=== PATIENT | female | born 1955 | race Caucasian/White ===

== ENCOUNTER 2017-06-06 16:49 | Observation (INO) | payer OTHER ==
[2017-06-06] MEDS: ONDANSETRON HCL 4 MG/2 ML VIAL IM (17:30)
[2017-06-06 18:08] LABS: AUTOMATED NEUTROPHIL # 6.9 TH/MM3 (1.8-7.7); BASOPHIL % 0.3 % (0.0-2.0); EOSINOPHIL # 0.1 TH/MM3 (0-0.4); EOSINOPHIL % 0.7 % (0.0-4.0); HEMATOCRIT 44.8 % (35.0-46.0); HEMO FLAGS DIFF FINAL; HEMOGLOBIN 15.3 GM/DL (11.6-15.3); MEAN CORPUSCULAR HEMOGLOBIN 30.7 PG (27.0-34.0); MEAN CORPUSCULAR HGB CONC 34.1 % (32.0-36.0); MEAN PLATELET VOLUME 7.8 FL (7.0-11.0); MONO % 6.1 % (0.0-8.0); MONOCYTE # 0.5 TH/MM3 (0-0.9); NEUT % 80.9 % (16.0-70.0); PLATELET COUNT 315 TH/MM3 (150-450); RED BLOOD COUNT 4.98 MIL/MM3 (4.00-5.30); RED CELL DISTRIBUTION WIDTH 13.4 % (11.6-17.2); WHITE BLOOD COUNT 8.5 TH/MM3 (4.0-11.0)
[2017-06-06] MEDS: SODIUM CHLOR 0.9% 1000 ML INJ 1,000 ML IV (18:26)
[2017-06-06 18:27] LABS: ALBUMIN 4.1 GM/DL (3.4-5.0); ANION GAP 12 MEQ/L (5-15); AST (GOT) 19 U/L (15-37); BICARBONATE 24.4 MEQ/L (21.0-32.0); BLOOD UREA NITROGEN 11 MG/DL (7-18); CALCIUM 9.8 MG/DL (8.5-10.1); CHLORIDE 101 MEQ/L (98-107); CREATININE 1.01 MG/DL (0.50-1.00); GLOMERULAR FILTRATION RATE 56 ML/MIN (>89); GLUCOSE,RANDOM 129 MG/DL (74-106); LIPASE 99 U/L (73-393); POTASSIUM 3.3 MEQ/L (3.5-5.1); SODIUM (NA) 137 MEQ/L (136-145)
[2017-06-06] MEDS: ONDANSETRON HCL 4 MG/2 ML VIAL IV PUSH (18:27)
[2017-06-06 18:29] LABS: ALT (GPT) 15 U/L (10-53)
[2017-06-06 18:31] LABS: ALKALINE PHOSPHATASE 68 U/L (45-117); TOTAL BILIRUBIN ADULT 0.9 MG/DL (0.2-1.0); TOTAL PROTEIN 8.2 GM/DL (6.4-8.2)
[2017-06-06] MEDS: DIATRIZOATE MEGLUM/DIATRIZOATE SOD 120 ML BTL (for RAD DIAG) PO (19:00)
[2017-06-06] MEDS: METOCLOPRAMIDE HCL 10 MG/2 ML VIAL IV PUSH (20:47)
[2017-06-06] MEDS: PROCHLORPERAZINE INJ 10 MG/2 ML VIAL IV PUSH (22:07)
[2017-06-06] MEDS: PANTOPRAZOLE SODIUM 40 MG VIAL IV PUSH (22:12)
[2017-06-06] MEDS: NS + KCL 20 MEQ INJ 1,000 ML IV (22:12)
[2017-06-07] MEDS: PROMETHAZINE INJ 25 MG/ML VIAL IM ×2 (02:01→08:18)
[2017-06-07] MEDS: LEVOTHYROXINE SODIUM 100 MCG TAB PO (06:00)
[2017-06-07] MEDS: PROCHLORPERAZINE INJ 10 MG/2 ML VIAL IV PUSH (06:17)
[2017-06-07 07:56] LABS: ALBUMIN 3.3 GM/DL (3.4-5.0); ALT (GPT) 14 U/L (10-53); ANION GAP 9 MEQ/L (5-15); AST (GOT) 14 U/L (15-37); BICARBONATE 24.6 MEQ/L (21.0-32.0); BLOOD UREA NITROGEN 9 MG/DL (7-18); CALCIUM 8.4 MG/DL (8.5-10.1); CHLORIDE 106 MEQ/L (98-107); CREATININE 0.74 MG/DL (0.50-1.00); GLOMERULAR FILTRATION RATE 80 ML/MIN (>89); GLUCOSE,RANDOM 91 MG/DL (74-106); SODIUM (NA) 140 MEQ/L (136-145)
[2017-06-07] MEDS: SUCRALFATE 1 GM/10 ML CUP PO ×4 (08:00→21:03)
[2017-06-07 08:03] LABS: ALKALINE PHOSPHATASE 59 U/L (45-117); TOTAL BILIRUBIN ADULT 0.6 MG/DL (0.2-1.0)
[2017-06-07] MEDS: NS + KCL 20 MEQ INJ 1,000 ML IV (08:18)
[2017-06-07] MEDS ORDERED: LUBIPROSTONE 8 MCG PO (09:00)
[2017-06-07] MEDS ORDERED: LUBIPROSTONE PO (09:00)
[2017-06-07] MEDS: PANTOPRAZOLE SODIUM 40 MG VIAL IV PUSH ×2 (09:25→21:02)
[2017-06-07 11:39] LABS: HEMATOCRIT 39.1 % (35.0-46.0); HEMOGLOBIN 13.4 GM/DL (11.6-15.3); MEAN CELL VOLUME 90.8 FL (80.0-100.0); MEAN CORPUSCULAR HEMOGLOBIN 31.1 PG (27.0-34.0); MEAN CORPUSCULAR HGB CONC 34.2 % (32.0-36.0); MEAN PLATELET VOLUME 8.2 FL (7.0-11.0); PLATELET COUNT 264 TH/MM3 (150-450); RED CELL DISTRIBUTION WIDTH 13.2 % (11.6-17.2); REVIEW FLAG FINAL; WHITE BLOOD COUNT 14.8 TH/MM3 (4.0-11.0)
[2017-06-07] MEDS: ONDANSETRON HCL 4 MG/2 ML VIAL IV PUSH (11:47)
[2017-06-07] MEDS ORDERED: SUCCINYLCHOLINE CHLORIDE 200 MG/10 ML VIAL IV (12:00)
[2017-06-07] MEDS ORDERED: LIDOCAINE HCL 1% PF 5 ML SYRINGE OTHER (12:00)
[2017-06-07] MEDS: APREPITANT 40 MG CAP (13:08)
[2017-06-07] MEDS ORDERED: APREPITANT 40 MG CAP PO (14:00)
[2017-06-07] MEDS ORDERED: DO NOT ADM ANY ANTICOAGULANT DRUGS (14:40)
[2017-06-07] MEDS ORDERED: METOCLOPRAMIDE HCL 10 MG TAB PO ×2 (17:00)
[2017-06-07] MEDS: METOCLOPRAMIDE HCL 10 MG/2 ML VIAL IV PUSH ×2 (18:44→21:03)
[2017-06-08] MEDS: LEVOTHYROXINE SODIUM 100 MCG TAB PO (06:11)
[2017-06-08] MEDS: METOCLOPRAMIDE HCL 10 MG/2 ML VIAL IV PUSH (06:11)
[2017-06-08] MEDS: SUCRALFATE 1 GM/10 ML CUP PO ×2 (06:11→12:25)
[2017-06-08] MEDS: PANTOPRAZOLE SODIUM 40 MG VIAL IV PUSH (09:09)
[2017-06-08] MEDS: ACETAMIN 325 MG/BUTALBITAL 50 MG/CAFFEINE 40 MG TAB PO (09:10)
== END 2017-06-08 15:20 | disposition home or self-care (01) ==
LOC: NEPE 16:49 → NEDA 20:50 → NEPGCP 22:46
DX: R11.2 Nausea with vomiting, unspecified (principal); K22.4 Dyskinesia of esophagus; K22.10 Ulcer of esophagus without bleeding; I49.9 Cardiac arrhythmia, unspecified; I10 Essential (primary) hypertension; E78.5 Hyperlipidemia, unspecified; E03.9 Hypothyroidism, unspecified; G47.33 Obstructive sleep apnea (adult) (pediatric); K21.9 Gastro-esophageal reflux disease without esophagitis; M79.7 Fibromyalgia; E87.6 Hypokalemia; R53.82 Chronic fatigue, unspecified; G43.909 Migraine, unspecified, not intractable, without status migrainosus; M81.0 Age-related osteoporosis without current pathological fracture; Z79.899 Other long term (current) drug therapy; Z87.891 Personal history of nicotine dependence
CPT/HCPCS: 00731; 74240; 80053; 83690; 84443; 85025; 85027; 93005; 96361; 96372; 96374; 96375; 99285-25

== ENCOUNTER 2017-08-23 13:58 | Emergency (ER) | payer OTHER ==
[~2017-08-23 13:58] MED LIST: AMIT8CAP6 PO; BUTA1CAP PO; CHOL400D2 PO; LEVO.1 PO; PROT40TA PO; REGL5TAB PO; SUCR1S PO; VITA100021 SL
[2017-08-23 14:12] VITALS: BP 116/74; PULSE 75; RESP 16; TEMP 98.2; O2SAT 100
[2017-08-23 15:10] LABS: AUTOMATED NEUTROPHIL # 4.6 TH/MM3 (1.8-7.7); BASOPHIL % 0.6 % (0.0-2.0); EOSINOPHIL % 0.6 % (0.0-4.0); HEMATOCRIT 42.4 % (35.0-46.0); HEMOGLOBIN 14.7 GM/DL (11.6-15.3); LYMPH % 21.5 % (9.0-44.0); LYMPHOCYTE # 1.4 TH/MM3 (1.0-4.8); MEAN CELL VOLUME 88.1 FL (80.0-100.0); MEAN CORPUSCULAR HEMOGLOBIN 30.5 PG (27.0-34.0); MEAN CORPUSCULAR HGB CONC 34.6 % (32.0-36.0); MEAN PLATELET VOLUME 8.2 FL (7.0-11.0); MONOCYTE # 0.4 TH/MM3 (0-0.9); NEUT % 71.3 % (16.0-70.0); PLATELET COUNT 282 TH/MM3 (150-450); RED BLOOD COUNT 4.81 MIL/MM3 (4.00-5.30); RED CELL DISTRIBUTION WIDTH 13.5 % (11.6-17.2); WHITE BLOOD COUNT 6.4 TH/MM3 (4.0-11.0)
[2017-08-23 15:34] LABS: ALBUMIN 3.8 GM/DL (3.4-5.0); ALKALINE PHOSPHATASE 66 U/L (45-117); ALT (GPT) 14 U/L (10-53); AST (GOT) 16 U/L (15-37); BICARBONATE 28.7 MEQ/L (21.0-32.0); BLOOD UREA NITROGEN 10 MG/DL (7-18); CALCIUM 9.2 MG/DL (8.5-10.1); CHLORIDE 103 MEQ/L (98-107); GLOMERULAR FILTRATION RATE 73 ML/MIN (>89); GLUCOSE,RANDOM 89 MG/DL (74-106); SODIUM (NA) 141 MEQ/L (136-145); TOTAL BILIRUBIN ADULT 0.8 MG/DL (0.2-1.0); TOTAL PROTEIN 7.8 GM/DL (6.4-8.2)
[2017-08-23 15:40] LABS: PROTHROMBIN TIME - PATIENT 10.5 SEC (9.8-11.6)
[2017-08-23 17:00] VITALS: BP 139/79; PULSE 85; RESP 16; O2SAT 100
[2017-08-23] MEDS ORDERED: SODIUM CHLOR 0.9% 1000 ML INJ 1,000 ML IV SCH (17:14)
[2017-08-23] MEDS ORDERED: LIDOCAINE VISCOUS 2% SOLN 15 ML UDC PO ONE (17:15)
[2017-08-23] MEDS ORDERED: POTASSIUM CHLORIDE 20 MEQ CONTROLLED RELEASE TAB PO ONE (17:15)
[2017-08-23] MEDS ORDERED: ALUMINUM/MAGNESIUM/SIMETH 30 ML CUP PO ONE (17:15)
[2017-08-23] MEDS ORDERED: FAMOTIDINE 20 MG/2 ML VIAL IV PUSH ONE (17:15)
[2017-08-23] MEDS ORDERED: PROCHLORPERAZINE INJ 10 MG/2 ML VIAL IV PUSH ONE (17:15)
[2017-08-23] MEDS ORDERED: POTASSIUM CHLOR 10 MEQ PREMIX 100 ML IV ONE (17:15)
--- NOTE | 2017-08-23 17:22 | PD ---
HPI Chief Complaint: GI Complaint Time Seen by Provider: 17:02 Travel History International Travel<30 days: No Contact w/Intl Traveler<30days: No Traveled to known affect area: No History of Present Illness HPI This is a 63-year-old female with history of GERD, previous hiatal hernia status post Charlotte fundoplication redo April 2017 at [facility], hypothyroidism, presents for evaluation of nausea, vomiting, epigastric abdominal pain. Symptoms started 3 days ago. She reports that the pain is a burning sensation which feels like worse than her typical heartburn. She reports several episodes of nonbloody emesis which is now become dry heaves secondary to lack of oral intake. She reports that initially she had some diarrhea 3 days ago but that has resolved. She denies fevers, chills, chest pain, shortness of breath, cough, congestion, dysuria, flank pain. She reports that her current symptoms feel like heartburn but worse than usual and so she was concerned about possible gallbladder etiology. She reports that she has an appointment at the [facility] in 2 days with her dietary assistant for a GI barium series. She reports that she is not currently prescribed any antiemetics but in the past Compazine and Phenergan have worked the best. She has no other complaints at this time. [facility] Past Medical History Blood Disorders: No Anxiety: Yes Cancer: No Cardiovascular Problems: Yes Diabetes: No Endocrine: Yes Gastrointestinal Disorders: Yes GERD: Yes Glaucoma: No Genitourinary: No Hepatitis: No Hiatal Hernia: Yes Hypertension: Yes Immune Disorder: No Inguinal Hernia: Yes Musculoskeletal: Yes Neurologic: Yes Psychiatric: Yes Reproductive: No Respiratory: Yes Sleep Apnea: Yes Thyroid Disease: Yes Menopausal: Yes : 3 Para: 2 : 1 Past Surgical History Abdominal Surgery: Yes (rih repair) Genitourinary Surgery: Yes (uretheral stricture) Oral Surgery: Yes (tonsillectomy) Thoracic Surgery: Yes (HIATAL HERNIA REP.) Tonsillectomy: Yes Other Surgery: Yes (esophageal stricture and dilitation, Charlotte fundoplication) Social History Alcohol Use: Yes (OCCAS) Tobacco Use: No Substance Use: No Allergies-Medications (Allergen,Severity, Reaction): Coded Allergies: No Known Allergies (Verified Allergy, Unknown, 08/23/17) Reported Meds & Prescriptions Reported Meds & Active Scripts Active Potassium Chloride ER (Potassium Chloride) 20 Meq Tab 20 Meq PO BID 3 Days Phenergan (Promethazine HCl) 25 Mg Tablet 25 Mg PO Q6H PRN Fioricet (Rvsklxptfk-Nvigzvlsbjbez-Fbrgkesw) 50-300-40 Mg Cap 1 Cap PO Q4H PRN Sucralfate Liq (Sucralfate) 1 Gram/10 Ml Laina 1 Gm PO ACHS 30 Days Reported Amitiza (Lubiprostone) 8 Mcg Cap 8 Mcg PO BID Vitamin B-12 (Cyanocobalamin) 1,000 Mcg Subl 1,000 Mcg SL DAILY Vitamin D (Cholecalciferol) 400 Unit/Ml Drops 50,000 Units PO WEEKLY Synthroid (Levothyroxine Sodium) 100 Mcg Tab 100 Mcg PO DAILY Review of Systems Except as stated in HPI: all other systems reviewed are Neg Physical Exam Narrative GENERAL: Well-developed well-nourished female no acute distress SKIN: Warm and dry. HEAD: Atraumatic. Normocephalic. EYES: Pupils equal and round. No scleral icterus. No injection or drainage. ENT: No nasal bleeding or discharge. Mucous membranes pink and moist. NECK: Trachea midline. No JVD. CARDIOVASCULAR: Regular rate and rhythm. No murmur appreciated. RESPIRATORY: No accessory muscle use. Clear to auscultation. Breath sounds equal bilaterally. GASTROINTESTINAL: Abdomen soft, non-tender, nondistended. Hepatic and splenic margins not palpable. MUSCULOSKELETAL: No obvious deformities. No clubbing. No cyanosis. No edema. NEUROLOGICAL: Awake and alert. No obvious cranial nerve deficits. Motor grossly within normal limits. Normal speech. PSYCHIATRIC: Appropriate mood and affect; insight and judgment normal. Data Data Last Documented VS Vital Signs Date Time Temp Pulse Resp B/P (MAP) Pulse Ox O2 Delivery O2 Flow Rate FiO2 08/23/17 17:00 85 16 139/79 (99) 100 Room Air 08/23/17 14:12 98.2 Orders Orders Complete Blood Count With Diff (08/23/17 14:16) Comprehensive Metabolic Panel (08/23/17 14:16) Lipase (08/23/17 14:16) Prothrombin Time / Inr (Pt) (08/23/17 14:16) Act Partial Throm Time (Ptt) (08/23/17 14:16) Electrocardiogram (08/23/17 ) Creatine Kinase (Cpk) (08/23/17 17:14) Troponin I (08/23/17 17:14) Sodium Chlor 0.9% 1000 Ml Inj (Ns 1000 M (08/23/17 17:14) Famotidine Inj (Pepcid Inj) (08/23/17 17:15) Al-Mag Hy-Si 40-40-4 Mg/Ml Liq (Mag-Al P (08/23/17 17:15) Lidocaine 2% Viscous (Xylocaine 2% Visco (08/23/17 17:15) Potassium Chloride (Kcl) (08/23/17 17:15) Potassium Chlor 10 Meq Premix (Kcl 10 Me (08/23/17 17:15) Magnesium (Mg) (08/23/17 17:14) Prochlorperazine Inj (Compazine Inj) (08/23/17 17:15) Us Abdomen Gallbladder (08/23/17 ) Ed Discharge Order (08/23/17 18:47) Labs Laboratory Tests Test 08/23/17 14:31 White Blood Count 6.4 TH/MM3 Red Blood Count 4.81 MIL/MM3 Hemoglobin 14.7 GM/DL Hematocrit 42.4 % Mean Corpuscular Volume 88.1 FL Mean Corpuscular Hemoglobin 30.5 PG Mean Corpuscular Hemoglobin Concent 34.6 % Red Cell Distribution Width 13.5 % Platelet Count 282 TH/MM3 Mean Platelet Volume 8.2 FL Neutrophils (%) (Auto) 71.3 % Lymphocytes (%) (Auto) 21.5 % Monocytes (%) (Auto) 6.0 % Eosinophils (%) (Auto) 0.6 % Basophils (%) (Auto) 0.6 % Neutrophils # (Auto) 4.6 TH/MM3 Lymphocytes # (Auto) 1.4 TH/MM3 Monocytes # (Auto) 0.4 TH/MM3 Eosinophils # (Auto) 0.0 TH/MM3 Basophils # (Auto) 0.0 TH/MM3 CBC Comment DIFF FINAL Differential Comment Prothrombin Time 10.5 SEC Prothromb Time International Ratio 1.0 RATIO Activated Partial Thromboplast Time 26.6 SEC Blood Urea Nitrogen 10 MG/DL Creatinine 0.80 MG/DL Random Glucose 89 MG/DL Total Protein 7.8 GM/DL Albumin 3.8 GM/DL Calcium Level 9.2 MG/DL Alkaline Phosphatase 66 U/L Aspartate Amino Transf (AST/SGOT) 16 U/L Alanine Aminotransferase (ALT/SGPT) 14 U/L Total Bilirubin 0.8 MG/DL Sodium Level 141 MEQ/L Potassium Level 2.9 MEQ/L Chloride Level 103 MEQ/L Carbon Dioxide Level 28.7 MEQ/L Anion Gap 9 MEQ/L Estimat Glomerular Filtration Rate 73 ML/MIN Magnesium Level 1.8 MG/DL Total Creatine Kinase 44 U/L Troponin I LESS THAN 0.02 NG/ML Lipase 94 U/L MDM Medical Decision Making Medical Screen Exam Complete: Yes Emergency Medical Condition: Yes Medical Record Reviewed: Yes Differential Diagnosis Peptic ulcer disease, gastritis, pancreatitis, cholecystitis, dehydration, electrolyte abnormality Narrative Course I reviewed the patient's records. She was admitted in May 2017 for intractable nausea and vomiting. She underwent endoscopy on June 07 which revealed a single ulcer in the distal esophagus. EKG was obtained. Lab work, right upper quadrant ultrasound ordered. The patient was given Pepcid, IV fluids, Compazine and GI cocktail. The patient's lab work is been reviewed. Potassium level was 2.9, IV and oral potassium chloride ordered. Lab work is otherwise unremarkable. Right upper quadrant ultrasound is normal. Upon reexamination she feels significant improved, the pain is minimal and her nausea has almost resolved. At this point in time the plan will be to discharge the patient to follow-up with her dietary assistant in 2 days as scheduled. She will be given prescriptions for Phenergan as well as a 3 day supply of potassium. Discussed signs and symptoms that would warrant returning to the emergency room. She is stable for discharge. Diagnosis Primary Impression: Nausea and vomiting Additional Impression: Hypokalemia Additional Instructions: Medication as prescribed. Slowly advance diet as tolerated. Follow-up with your dietary assistant in 2 days as scheduled. Return for any acutely new or worsening symptoms. Med/Other Pt SpecificInfo: Prescription(s) given Scripts Potassium Chloride ER (Potassium Chloride ER) 20 Meq Tab 20 MEQ PO BID for Electrolyte Replacement for 3 Days, #6 TAB 0 Refills Prov: Satish Verma MD 08/23/17 Promethazine (Phenergan) 25 Mg Tablet 25 MG PO Q6H Y for NAUSEA OR VOMITING, #20 TAB 0 Refills Prov: Satish Verma MD 08/23/17 Disposition: 01 DISCHARGE HOME Condition: Stable Festus Moses Aug 23, 2017 17:22
[2017-08-23 18:13] LABS: MAGNESIUM 1.8 MG/DL (1.5-2.5)
[2017-08-23 18:15] LABS: TROPONIN I LESS THAN 0.02 NG/ML (0.02-0.05)
--- NOTE | 2017-08-23 18:41 | RADRPT ---
EXAM DATE/TIME: 08/23/2017 18:20 [place] COMPARISON: No previous studies available for comparison. INDICATIONS : Right upper quadrant pain. MEDICAL HISTORY : Hypertension. Gastroesophageal reflux disease. Thyroid disease. Numbness. Sleep apnea. Inguinal her zeferino. Anxiety. SURGICAL HISTORY : Tonsillectomy. Hiatal hernia repair. ENCOUNTER: Initial ACUITY: 1 day PAIN SCORE: 0/10 LOCATION: Right upper quadrant MEASUREMENTS: LIVER: 13.7 cm length COMMON DUCT: 3 mm RIGHT KIDNEY: 10.0 x 3.6 x 4.9 cm FINDINGS: LIVER: Suboptimal visualization due to overlying bowel gas. Normal echotexture without focal lesion or ducta l dilatation. COMMON DUCT: No intraluminal mass or stone visualized. GALLBLADDER: Contains no stones, demonstrates no wall thickening or pericholecystic fluid. PANCREAS: The visualized portions are within normal limits. RIGHT KIDNEY: No evidence of hydronephrosis, stone, or mass. CONCLUSION: Unremarkable exam. The gallbladder is within normal limits with no evidence of cholel ithiasis. Terence Hough MD on August 23, 2017 at 18:38 Board Certified Radiologist. This report was verified electronically.
[2017-08-23] MEDS ORDERED: PROM25TA10 PO (18:48)
[2017-08-23] MEDS ORDERED: POTA-163 PO (18:48)
[2017-08-23 18:51] VITALS: BP 138/74
--- NOTE | 2017-08-24 21:30 | EKG ---
Date Performed: 08/23/2017 Time Performed: 17:17:44 PTAGE: 62 years EKG: Sinus rhythm WITH SINUS ARRHYTHMIA NORMAL ECG NO PREVIOUS TRACING DOCTOR: Dale Reynaga Interpretating Date/Time 08/24/2017 21:29:55
== END 2017-08-23 19:21 | disposition home or self-care (01) ==
LOC: NEPC 13:58
DX: R11.2 Nausea with vomiting, unspecified (principal); E87.6 Hypokalemia; R10.13 Epigastric pain; E03.9 Hypothyroidism, unspecified; I10 Essential (primary) hypertension; K21.9 Gastro-esophageal reflux disease without esophagitis; F41.9 Anxiety disorder, unspecified; G47.30 Sleep apnea, unspecified
CPT/HCPCS: 76705; 80053; 82550; 83690; 83735; 84484; 85025; 85610; 85730; 93005; 96365; 96375; 99285; J0780; J3480; J7030

== ENCOUNTER 2017-08-25 11:27 | Observation (INO) | payer OTHER ==
[~2017-08-25] VITALS: Ht 160 cm; Wt 65.0 kg
[~2017-08-25 11:27] MED LIST changes: +POTA-163 PO; +PROM25TA10 PO; -PROT40TA PO; -REGL5TAB PO
[2017-08-25 11:49] VITALS: BP 161/81; PULSE 64; RESP 19; TEMP 98.7; O2SAT 100
[2017-08-25] MEDS ORDERED: PANTOPRAZOLE SODIUM 40 MG VIAL IV PUSH ONE (13:30)
[2017-08-25] MEDS ORDERED: SODIUM CHLOR 0.9% 1000 ML INJ 1,000 ML IV ONE ×2 (13:30→15:30)
[2017-08-25] MEDS ORDERED: PROCHLORPERAZINE INJ 10 MG/2 ML VIAL IV PUSH ONE (13:30)
--- NOTE | 2017-08-25 13:33 | PD ---
HPI Chief Complaint: GI Complaint Time Seen by Provider: 13:16 Travel History International Travel<30 days: No Contact w/Intl Traveler<30days: No Traveled to known affect area: No History of Present Illness HPI 62-year-old female presents to the emergency department for evaluation of nausea and vomiting. Patient was seen 2 days ago the emergency department for the same. She has history of GERD, previous hiatal hernia, status post Jagjit fundoplication redo April 2000 at the [facility], hypothyroidism. Patient denies any abdominal pain to be. No chest pain or shortness of breath. Patient states that she was discharged on Tuesday and slept until yesterday morning. She went to eat last night and has been vomiting since 4 AM. She states that she is having coffee-ground emesis due to the vomiting. Patient denies any diarrhea, states she has not had a recent bowel movement. Patient states she was due to have a barium swallow today at the [facility] and was scheduled for an endoscopy on Tuesday. She has also been following with Dr. Verma, greenskeeper head. No pain at this time. No exacerbating or alleviating factors. She did try Zofran sublingual as well as Phenergan by mouth with no improvement. Moderate severity. PFSH Past Medical History Blood Disorders: No Anxiety: Yes Cancer: No Cardiovascular Problems: Yes Diabetes: No Endocrine: Yes Gastrointestinal Disorders: Yes GERD: Yes Glaucoma: No Genitourinary: No Hepatitis: No Hiatal Hernia: Yes Hypertension: Yes Immune Disorder: No Inguinal Hernia: Yes Musculoskeletal: Yes Neurologic: Yes Psychiatric: Yes Reproductive: No Respiratory: Yes Immunizations Current: Yes Sleep Apnea: Yes Thyroid Disease: Yes ?: Not Menopausal: Yes : 3 Para: 2 : 1 Past Surgical History Abdominal Surgery: Yes (rih repair) Genitourinary Surgery: Yes (uretheral stricture) Oral Surgery: Yes (tonsillectomy) Thoracic Surgery: Yes (HIATAL HERNIA REP.) Tonsillectomy: Yes Other Surgery: Yes (esophageal stricture and dilitation, Charlotte fundoplication) Social History Alcohol Use: Yes (OCCAS) Tobacco Use: No Substance Use: No Allergies-Medications (Allergen,Severity, Reaction): Coded Allergies: No Known Allergies (Verified Allergy, Unknown, 08/25/17) Reported Meds & Prescriptions Reported Meds & Active Scripts Active Potassium Chloride ER (Potassium Chloride) 20 Meq Tab 20 Meq PO BID 3 Days Phenergan (Promethazine HCl) 25 Mg Tablet 25 Mg PO Q6H PRN Fioricet (Rybunueaeq-Qxdprakqidnkh-Ewhgowge) 50-300-40 Mg Cap 1 Cap PO Q4H PRN Sucralfate Liq (Sucralfate) 1 Gram/10 Ml Laina 1 Gm PO ACHS 30 Days Reported Amitiza (Lubiprostone) 8 Mcg Cap 8 Mcg PO BID Vitamin B-12 (Cyanocobalamin) 1,000 Mcg Subl 1,000 Mcg SL DAILY Vitamin D (Cholecalciferol) 400 Unit/Ml Drops 50,000 Units PO WEEKLY Synthroid (Levothyroxine Sodium) 100 Mcg Tab 100 Mcg PO DAILY Review of Systems Except as stated in HPI: all other systems reviewed are Neg Physical Exam Narrative GENERAL: Well-nourished, well-developed female patient, afebrile. SKIN: Focused skin assessment warm/dry. Small healed incision to abdomen without erythema or evidence of infection. HEAD: Normocephalic. Atraumatic. EYES: No scleral icterus. No injection or drainage. NECK: Supple, trachea midline. No JVD or lymphadenopathy. CARDIOVASCULAR: Regular rate and rhythm without murmurs, gallops, or rubs. RESPIRATORY: Breath sounds equal bilaterally. No accessory muscle use. Lungs sounds are clear to auscultation. GASTROINTESTINAL: Abdomen soft, non-tender, nondistended. No abdominal tenderness to palpation. MUSCULOSKELETAL: No cyanosis, or edema. BACK: Nontender without obvious deformity. No CVA tenderness. Data Data Last Documented VS Vital Signs Date Time Temp Pulse Resp B/P (MAP) Pulse Ox O2 Delivery O2 Flow Rate FiO2 08/25/17 14:41 69 23 176/81 (112) 98 Room Air 08/25/17 11:49 98.7 Orders Orders Complete Blood Count With Diff (08/25/17 11:53) Comprehensive Metabolic Panel (08/25/17 11:53) Urinalysis - C+S If Indicated (08/25/17 11:53) Iv Access Insert/Monitor (08/25/17 11:53) Oxygen Administration (08/25/17 11:53) Oximetry (08/25/17 11:53) Lipase (08/25/17 11:53) Electrocardiogram (08/25/17 ) Magnesium (Mg) (08/25/17 13:24) Creatine Kinase (Cpk) (08/25/17 13:24) Troponin I (08/25/17 13:24) Act Partial Throm Time (Ptt) (08/25/17 13:24) Prothrombin Time / Inr (Pt) (08/25/17 13:24) Type And Screen (08/25/17 13:24) Sodium Chlor 0.9% 1000 Ml Inj (Ns 1000 M (08/25/17 13:30) Prochlorperazine Inj (Compazine Inj) (08/25/17 13:30) Pantoprazole Inj (Protonix Inj) (08/25/17 13:30) Potassium Chloride (Kcl) (08/25/17 14:45) Metoclopramide Inj (Reglan Inj) (08/25/17 15:30) Sodium Chlor 0.9% 1000 Ml Inj (Ns 1000 M (08/25/17 15:30) Place In Observation (08/25/17 ) Code Status (08/25/17 15:28) Vital Signs (Adult) Q4H (08/25/17 15:28) Activity Bed Rest With Brp (08/25/17 15:28) Intake + Output OPAL.QSHIFT (08/25/17 15:28) ^ Monitor OPAL.QSHIFT (08/25/17 15:28) Diet Liquid (08/25/17 Dinner) Special Diet Instructions (08/25/17 15:28) Sodium Chloride 0.9% Flush (Ns Flush) (08/25/17 15:30) Sodium Chloride 0.9% Flush (Ns Flush) (08/25/17 21:00) Ondansetron Inj (Zofran Inj) (08/25/17 15:30) Comprehensive Metabolic Panel (08/26/17 06:00) Magnesium (Mg) (08/25/17 15:28) Phosphorus (Po4) (08/25/17 15:28) Consult Gastroenterology (08/25/17 ) Ct Abd/Pel W/O Iv Contrast (08/25/17 ) 1/2 Ns + Kcl 20 Meq Inj (1/2 Ns + Kcl 20 (08/25/17 15:45) Admit Order (Ed Use Only) (08/25/17 15:40) Labs Laboratory Tests Test 08/25/17 12:22 08/25/17 12:30 08/25/17 13:30 Urine Color YELLOW Urine Turbidity CLEAR Urine pH 8.5 Urine Specific [place] 1.021 Urine Protein 30 mg/dL Urine Glucose (UA) 300 mg/dL Urine Ketones 150 mg/dL Urine Occult Blood NEG Urine Nitrite NEG Urine Bilirubin NEG Urine Urobilinogen LESS THAN 2.0 MG/DL Urine Leukocyte Esterase NEG Urine RBC 1 /hpf Urine WBC 4 /hpf Urine Squamous Epithelial Cells 1 /hpf Urine Bacteria OCC /hpf Urine Mucus FEW /lpf Microscopic Urinalysis Comment CULT NOT INDICATED White Blood Count 10.9 TH/MM3 Red Blood Count 4.61 MIL/MM3 Hemoglobin 14.1 GM/DL Hematocrit 40.7 % Mean Corpuscular Volume 88.2 FL Mean Corpuscular Hemoglobin 30.6 PG Mean Corpuscular Hemoglobin Concent 34.6 % Red Cell Distribution Width 13.2 % Platelet Count 271 TH/MM3 Mean Platelet Volume 9.1 FL Neutrophils (%) (Auto) 94.5 % Lymphocytes (%) (Auto) 3.3 % Monocytes (%) (Auto) 2.1 % Eosinophils (%) (Auto) 0.0 % Basophils (%) (Auto) 0.1 % Neutrophils # (Auto) 10.3 TH/MM3 Lymphocytes # (Auto) 0.4 TH/MM3 Monocytes # (Auto) 0.2 TH/MM3 Eosinophils # (Auto) 0.0 TH/MM3 Basophils # (Auto) 0.0 TH/MM3 CBC Comment DIFF FINAL Differential Comment Blood Urea Nitrogen 11 MG/DL Creatinine 0.91 MG/DL Random Glucose 151 MG/DL Total Protein 7.9 GM/DL Albumin 3.9 GM/DL Calcium Level 9.3 MG/DL Alkaline Phosphatase 64 U/L Aspartate Amino Transf (AST/SGOT) 17 U/L Alanine Aminotransferase (ALT/SGPT) 15 U/L Total Bilirubin 0.8 MG/DL Sodium Level 140 MEQ/L Potassium Level 3.1 MEQ/L Chloride Level 104 MEQ/L Carbon Dioxide Level 25.8 MEQ/L Anion Gap 10 MEQ/L Estimat Glomerular Filtration Rate 63 ML/MIN Lipase 88 U/L Magnesium Level 1.8 MG/DL Total Creatine Kinase 143 U/L Troponin I LESS THAN 0.02 NG/ML MDM Medical Decision Making Medical Screen Exam Complete: Yes Emergency Medical Condition: Yes Medical Record Reviewed: Yes Differential Diagnosis Electrolyte abnormality versus dehydration versus intractable vomiting versus PABLO Narrative Course 62-year-old female presents to the emergency department for evaluation of intractable vomiting. Patient was admitted in May for similar symptoms. EKG shows sinus rhythm, heart rate 63, no acute ST changes, prolonged QT interval at 483ms. CBC, CMP, lipase, CK, troponin, magnesium, PTT, PT/INR, type and screen, UA are ordered and pending. Patient is given normal saline 1 L IV bolus, Compazine 10 mg IV, Protonix 40 mg IV. CBC shows no acute abnormality. CMP shows no acute abnormality, hypokalemia of 3.1. Lipase is 88. CK is 143. Troponin is less than 0.02. Magnesium is 1.8. UA shows 150 ketones, occasional bacteria. Patient is given potassium 40 mg by mouth. Upon reexamination, patient states she has vomited since receiving the Compazine. She states that since being discharged on Tuesday, she has been unable to eat or drink anything and does not feel comfortable being discharged at this time. Patient is given second liter normal saline IV bolus, Reglan 10 mg IV. [facility] is paged for admission for intractable vomiting. Diagnosis Primary Impression: Intractable vomiting Qualified Codes: R11.2 - Nausea with vomiting, unspecified Admitting Information Admitting Physician Requests: Kristin Najera Aug 25, 2017 13:33
[2017-08-25 13:44] LABS: AUTOMATED NEUTROPHIL # 10.3 TH/MM3 (1.8-7.7); BASOPHIL % 0.1 % (0.0-2.0); HEMATOCRIT 40.7 % (35.0-46.0); HEMOGLOBIN 14.1 GM/DL (11.6-15.3); LYMPH % 3.3 % (9.0-44.0); LYMPHOCYTE # 0.4 TH/MM3 (1.0-4.8); MEAN CELL VOLUME 88.2 FL (80.0-100.0); MEAN CORPUSCULAR HEMOGLOBIN 30.6 PG (27.0-34.0); MEAN CORPUSCULAR HGB CONC 34.6 % (32.0-36.0); MEAN PLATELET VOLUME 9.1 FL (7.0-11.0); MONO % 2.1 % (0.0-8.0); MONOCYTE # 0.2 TH/MM3 (0-0.9); NEUT % 94.5 % (16.0-70.0); PLATELET COUNT 271 TH/MM3 (150-450); RED BLOOD COUNT 4.61 MIL/MM3 (4.00-5.30); RED CELL DISTRIBUTION WIDTH 13.2 % (11.6-17.2); WHITE BLOOD COUNT 10.9 TH/MM3 (4.0-11.0)
[2017-08-25 13:45] LABS: BACTERIA, URINE OCC /hpf; BILIRUBIN, URINE NEG (NEG); BLOOD, URINE NEG (NEG); GLUCOSE,URINE 300 mg/dL (NEG); KETONE, URINE 150 mg/dL (NEG); MUCUS URINE FEW /lpf (OCC); NITRITE,URINE NEG (NEG); PH, URINE 8.5 (5.0-8.5); SQUAMOUS EPITHELIAL CELL URINE 1 /hpf (0-5); URINE COLOR YELLOW (YELLW/STRAW); URINE LEUKOCYTE ESTERASE NEG (NEG)
[2017-08-25 14:07] LABS: ALBUMIN 3.9 GM/DL (3.4-5.0); AST (GOT) 17 U/L (15-37); BICARBONATE 25.8 MEQ/L (21.0-32.0); BLOOD UREA NITROGEN 11 MG/DL (7-18); CALCIUM 9.3 MG/DL (8.5-10.1); CHLORIDE 104 MEQ/L (98-107); CREATININE 0.91 MG/DL (0.50-1.00); GLOMERULAR FILTRATION RATE 63 ML/MIN (>89); GLUCOSE,RANDOM 151 MG/DL (74-106); SODIUM (NA) 140 MEQ/L (136-145)
[2017-08-25 14:09] LABS: ALT (GPT) 15 U/L (10-53)
[2017-08-25 14:10] LABS: ALKALINE PHOSPHATASE 64 U/L (45-117); TOTAL BILIRUBIN ADULT 0.8 MG/DL (0.2-1.0); TOTAL PROTEIN 7.9 GM/DL (6.4-8.2)
[2017-08-25 14:41] VITALS: BP 176/81; PULSE 69; RESP 23; O2SAT 98
[2017-08-25 14:44] LABS: TROPONIN I LESS THAN 0.02 NG/ML (0.02-0.05)
[2017-08-25] MEDS ORDERED: POTASSIUM CHLORIDE 20 MEQ CONTROLLED RELEASE TAB PO ONE (14:45)
[2017-08-25 14:46] LABS: MAGNESIUM 1.8 MG/DL (1.5-2.5)
[2017-08-25] MEDS ORDERED: SODIUM CHLORIDE 0.9% FLUSH 10 ML FLUSH IV FLUSH PRN (15:30)
[2017-08-25] MEDS ORDERED: ONDANSETRON HCL 4 MG/2 ML VIAL IV PUSH PRN (15:30)
[2017-08-25] MEDS ORDERED: METOCLOPRAMIDE HCL 10 MG/2 ML VIAL IV PUSH ONE (15:30)
[2017-08-25] MEDS ORDERED: PROCHLORPERAZINE INJ 10 MG/2 ML VIAL IM PRN (15:45)
--- NOTE | 2017-08-25 15:57 | HHI.HP ---
HPI Service [facility] Primary Care Physician Speedy Lobo MD Admission Diagnosis intractable vomiting Chief Complaint: vomitting Travel History International Travel<30 Days: No Contact w/Intl Traveler <30 Da: No Traveled to Known Affected Are: No History of Present Illness This is a 62-year-old female who presents to the emergency department having had a hiatal hernia repair, gastroparesis (per patient she does not respond to Reglan or erythromycin) and Charlotte fundoplication redo May 06, 2017 at [facility] by Dr. Darling who presents to the emergency department with vomiting. After eating last night and has been having recurrent vomiting since 2 AM. She states that she has been having intermitted vomiting for the past 2 weeks but today patient is having coffee-ground emesis. Patient denies feeling dizzy or lightheaded, diarrhea, states she has not had a recent bowel movement. Patient follows with [facility] and Dr. Verma locally. Patient did take Zofran sublingual as well as Phenergan by mouth at home with no improvement. Moderate severity. Patient denies chest pain, SOB, fevers or chills. Review of Systems Gastrointestinal: COMPLAINS OF: Nausea, Vomiting Past Family Social History Past Medical History Migraine headache Hyperlipidemia Osteoporosis GERD Hiatal hernia Hypothyroidism Obstructive sleep apnea and fibromyalgia Chronic fatigue syndrome Past Surgical History Charlotte fundoplication 2009 with recent laparoscopic Charlotte fundoplication redo May 06, 2017 at [facility] Cervical discectomy 2009 Right inguinal hernia repair 1992 Urethral dilatation 1973 Tonsillectomy and adenoidectomy Reported Medications Potassium Chloride ER (Potassium Chloride) 20 Meq Tab 20 Meq PO BID 3 Days Phenergan (Promethazine HCl) 25 Mg Tablet 25 Mg PO Q6H PRN Fioricet (Stfdjxaito-Hjxfamawysbyc-Wqtzgxtx) 50-300-40 Mg Cap 1 Cap PO Q4H PRN Sucralfate Liq (Sucralfate) 1 Gram/10 Ml Laina 1 Gm PO ACHS 30 Days Amitiza (Lubiprostone) 8 Mcg Cap 8 Mcg PO BID Vitamin B-12 (Cyanocobalamin) 1,000 Mcg Subl 1,000 Mcg SL DAILY Vitamin D (Cholecalciferol) 400 Unit/Ml Drops 50,000 Units PO WEEKLY Synthroid (Levothyroxine Sodium) 100 Mcg Tab 100 Mcg PO DAILY Allergies: Coded Allergies: No Known Allergies (Verified Allergy, Unknown, 08/25/17) Family History Father of sepsis at age 82, mother of sepsis at age 91 Brother has coronary artery disease Social History Drinks 1-2 glasses of wine per month 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 Lives alone. 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 SKIN: No rashes, ecchymoses or lesions. Cool and dry. HEAD: Atraumatic. Normocephalic. No temporal or scalp tenderness. EYES: Extraocular motions intact. No scleral icterus. No injection or drainage. CARDIOVASCULAR: Regular rate and rhythm RESPIRATORY: Clear to auscultation. Breath sounds equal bilaterally. GASTROINTESTINAL: Abdomen soft, non-tender, nondistended. scant bowel sounds through out MUSCULOSKELETAL: Extremities without clubbing, cyanosis, or edema. No joint tenderness, effusion, or edema noted. No calf tenderness. Negative Homans sign bilaterally. NEUROLOGICAL: Awake and alert. No focal deficits. Motor and sensory grossly within normal limits. Five out of 5 muscle strength in all muscle groups. Normal speech. Laboratory Laboratory Tests Test 08/25/17 12:22 08/25/17 12:30 08/25/17 13:30 Urine Color YELLOW Urine Turbidity CLEAR Urine pH 8.5 Urine Specific [place] 1.021 Urine Protein 30 Urine Glucose (UA) 300 Urine Ketones 150 Urine Occult Blood NEG Urine Nitrite NEG Urine Bilirubin NEG Urine Urobilinogen LESS THAN 2.0 Urine Leukocyte Esterase NEG Urine RBC 1 Urine WBC 4 Urine Squamous Epithelial Cells 1 Urine Bacteria OCC Urine Mucus FEW Microscopic Urinalysis Comment CULT NOT INDICATED White Blood Count 10.9 Red Blood Count 4.61 Hemoglobin 14.1 Hematocrit 40.7 Mean Corpuscular Volume 88.2 Mean Corpuscular Hemoglobin 30.6 Mean Corpuscular Hemoglobin Concent 34.6 Red Cell Distribution Width 13.2 Platelet Count 271 Mean Platelet Volume 9.1 Neutrophils (%) (Auto) 94.5 Lymphocytes (%) (Auto) 3.3 Monocytes (%) (Auto) 2.1 Eosinophils (%) (Auto) 0.0 Basophils (%) (Auto) 0.1 Neutrophils # (Auto) 10.3 Lymphocytes # (Auto) 0.4 Monocytes # (Auto) 0.2 Eosinophils # (Auto) 0.0 Basophils # (Auto) 0.0 CBC Comment DIFF FINAL Differential Comment Blood Urea Nitrogen 11 Creatinine 0.91 Random Glucose 151 Total Protein 7.9 Albumin 3.9 Calcium Level 9.3 Alkaline Phosphatase 64 Aspartate Amino Transf (AST/SGOT) 17 Alanine Aminotransferase (ALT/SGPT) 15 Total Bilirubin 0.8 Sodium Level 140 Potassium Level 3.1 Chloride Level 104 Carbon Dioxide Level 25.8 Anion Gap 10 Estimat Glomerular Filtration Rate 63 Lipase 88 Magnesium Level 1.8 Total Creatine Kinase 143 Troponin I LESS THAN 0.02 Result Diagram: 08/25/17 1230 08/25/17 1230 Caprini VTE Risk Assessment Caprini VTE Risk Assessment: No/Low Risk (score <= 1) Caprini Risk Assessment Model Point Value = 1 Point Value = 2 Point Value = 3 Point Value = 5 Age 41-60 Minor surgery BMI > 25 kg/m2 Swollen legs Varicose veins or History of unexplained or recurrent spontaneous Oral contraceptives or hormone replacement Sepsis (< 1 month) Serious lung disease, including pneumonia (< 1 month) Abnormal pulmonary function Acute myocardial infarction Congestive heart failure (< 1 month) History of inflammatory bowel disease Medical patient at bed rest Age 61-74 Arthroscopic surgery Major open surgery (> 45 min) Laparoscopic surgery (> 45 min) Malignancy Confined to bed (> 72 hours) Immobilizing plaster cast Central venous access Age >= 75 History of VTE Family history of VTE Factor V Leiden Prothrombin [id number] Lupus anticoagulant Anticardiolipin antibodies Elevated serum homocysteine Heparin-induced thrombocytopenia Other congenital or acquired thrombophilia Stroke (< 1 month) Elective arthroplasty Hip, pelvis, or leg fracture Acute spinal cord injury (< 1 month) Prophylaxis Regimen Total Risk Factor Score Risk Level Prophylaxis Regimen 0-1 Low Early ambulation 2 Moderate Order ONE of the following: *Sequential Compression Device (SCD) *Heparin 5000 units SQ BID 3-4 Higher Order ONE of the following medications: *Heparin 5000 units SQ TID *Enoxaparin/Lovenox 40 mg SQ daily (WT < 150 kg, CrCl > 30 mL/min) *Enoxaparin/Lovenox 30 mg SQ daily (WT < 150 kg, CrCl > 10-29 mL/min) *Enoxaparin/Lovenox 30 mg SQ BID (WT < 150 kg, CrCl > 30 mL/min) AND/OR *Sequential Compression Device (SCD) 5 or more Highest Order ONE of the following medications: *Heparin 5000 units SQ TID (Preferred with Epidurals) *Enoxaparin/Lovenox 40 mg SQ daily (WT < 150 kg, CrCl > 30 mL/min) *Enoxaparin/Lovenox 30 mg SQ daily (WT < 150 kg, CrCl > 10-29 mL/min) *Enoxaparin/Lovenox 30 mg SQ BID (WT < 150 kg, CrCl > 30 mL/min) AND *Sequential Compression Device (SCD) Assessment and Plan Problem List: (1) Intractable vomiting ICD Codes: R11.10 - Vomiting, unspecified Status: Acute Plan: Intractable vomiting - Patient has had Charlotte fundoplication 2008 with recent laparoscopic Charlotte fundoplication redo May 06, 2017 at [facility] by Dr. Darling. Patient also recently hospitalized 06/06/17 to 06/08/17 for similar symptoms. - Patient had an EGD on 06/07/17 --> Single ulcer ranging between 3-5 mm in size was found in the distal esophagus and 100cc of coffee grounds in the stomach - Will continue Clopamine and Reglan. Patient has been taking Zofran and Phenergan at home with no relief. Also QTcH 482 - CBC and BMP reviewed - potassium 3.1 replaced - IV fluids ordered - recheck CBC and BMP in AM - Consult GI, plan for EGD in AM - KUB in AM (2) Esophageal ulcer ICD Codes: K22.10 - Ulcer of esophagus without bleeding Plan: - Patient had an EGD on 06/07/17 --> Single ulcer ranging between 3-5 mm in size was found in the distal esophagus and 100cc of coffee grounds in the stomach (3) Obstructive sleep apnea ICD Codes: G47.33 - Obstructive sleep apnea (adult) (pediatric) Status: Chronic Plan: - May use home CPAP (4) GERD (gastroesophageal reflux disease) ICD Codes: K21.9 - Gastro-esophageal reflux disease without esophagitis Status: Chronic Plan: - continue PPI (5) Hypothyroidism ICD Codes: E03.9 - Hypothyroidism, unspecified Status: Chronic Plan: - Continue home Synthroid dose (6) Fibromyalgia ICD Codes: M79.7 - Fibromyalgia Status: Chronic Plan: - Failed multiple outpatient therapies per her report. Assessment and Plan Patient examined. Assessment and plan formulated with Shwetha Fitzpatrick PA-C. I agree with the above. Problem Qualifiers (1) Intractable vomiting: Qualified Codes: R11.2 - Nausea with vomiting, unspecified Shwetha Fitzpatrick Aug 25, 2017 15:56 Duane Johnson DO Aug 26, 2017 22:27
[2017-08-25] MEDS ORDERED: ACETAMIN 325 MG/BUTALBITAL 50 MG/CAFFEINE 40 MG TAB PO PRN (16:15)
--- NOTE | 2017-08-25 16:30 | PD.CONS ---
HPI History of Present Illness This is a 62 year old female s/p redo hany fundoplication 04/2018 who presented with n/v. She is having coffee ground emeis. She denies any abd pain but admits intense heartburn. She was on her way to a UGI series ordered by [facility] but was too uncomfortable. SHe was evaluated for similar sx by our service in may. She had EGD 06/07/17 that found single ulcer distal esophagus, 100 cc coffee ground material. AFter she was discharged she started having explosive diarrhea and fecal incontinence, it has been intermittent since then. INb between these episodes she does have "normal" formed BMs. SHe did follow up with Dr Verma in the office who ordered stool studies and c diff which were negative. SHe has also followed up with [facility] but could not make it to the tests. SHe is scheduled for EGD next Tuesday at [facility] but she does not think she can make it as she is unable to tolerate any PO. SHe has tried zofran and phenergan with no relief. NO fevers or blood in stool or black tarry stool. Last colonoscopy 2011 in [place] and was normal. (Bonita Alfonso) PFSH Past Medical History sleep apnea GERD hiatal hernia Past Surgical History hany fundoplication redo hany fundoplication right inguinal hernia repair discectomy (Bonita Alfonso) Coded Allergies: No Known Allergies (Verified Allergy, Unknown, 08/25/17) Family History denies Social History no etoh no tobacco no illicit drugs (Bonita Alfonso) Review of Systems Constitutional: DENIES: Fever Endocrine: DENIES: Polydipsia Eyes: DENIES: Blurred vision Ears, nose, mouth, throat: DENIES: Hearing loss Respiratory: DENIES: Cough Cardiovascular: DENIES: Chest pain Gastrointestinal: COMPLAINS OF: Diarrhea, Nausea, Vomiting, Hematemesis, DENIES : Abdominal pain, Black stools, Bloody stools Genitourinary: DENIES: Hematuria Musculoskeletal: DENIES: Joint Swelling Integumentary: DENIES: Abnormal pigmentation Hematologic/lymphatic: DENIES: Bruising Immunologic/allergic: DENIES: Eczema Neurologic: DENIES: Abnormal gait Psychiatric: DENIES: Confusion (Bonita Alfonso) GI Exam Vitals I&O Vital Signs Date Time Temp Pulse Resp B/P (MAP) Pulse Ox O2 Delivery O2 Flow Rate FiO2 08/25/17 14:41 69 23 176/81 (112) 98 Room Air 08/25/17 14:41 98 Room Air 08/25/17 11:49 98.7 64 19 161/81 (107) 100 Laboratory Test 08/25/17 12:22 08/25/17 12:30 08/25/17 13:30 Urine Color YELLOW Urine Turbidity CLEAR Urine pH 8.5 Urine Specific [place] 1.021 Urine Protein 30 mg/dL Urine Glucose (UA) 300 mg/dL Urine Ketones 150 mg/dL Urine Occult Blood NEG Urine Nitrite NEG Urine Bilirubin NEG Urine Urobilinogen LESS THAN 2.0 MG/DL Urine Leukocyte Esterase NEG Urine RBC 1 /hpf Urine WBC 4 /hpf Urine Squamous Epithelial Cells 1 /hpf Urine Bacteria OCC /hpf Urine Mucus FEW /lpf Microscopic Urinalysis Comment CULT NOT INDICATED White Blood Count 10.9 TH/MM3 Red Blood Count 4.61 MIL/MM3 Hemoglobin 14.1 GM/DL Hematocrit 40.7 % Mean Corpuscular Volume 88.2 FL Mean Corpuscular Hemoglobin 30.6 PG Mean Corpuscular Hemoglobin Concent 34.6 % Red Cell Distribution Width 13.2 % Platelet Count 271 TH/MM3 Mean Platelet Volume 9.1 FL Neutrophils (%) (Auto) 94.5 % Lymphocytes (%) (Auto) 3.3 % Monocytes (%) (Auto) 2.1 % Eosinophils (%) (Auto) 0.0 % Basophils (%) (Auto) 0.1 % Neutrophils # (Auto) 10.3 TH/MM3 Lymphocytes # (Auto) 0.4 TH/MM3 Monocytes # (Auto) 0.2 TH/MM3 Eosinophils # (Auto) 0.0 TH/MM3 Basophils # (Auto) 0.0 TH/MM3 CBC Comment DIFF FINAL Differential Comment Blood Urea Nitrogen 11 MG/DL Creatinine 0.91 MG/DL Random Glucose 151 MG/DL Total Protein 7.9 GM/DL Albumin 3.9 GM/DL Calcium Level 9.3 MG/DL Alkaline Phosphatase 64 U/L Aspartate Amino Transf (AST/SGOT) 17 U/L Alanine Aminotransferase (ALT/SGPT) 15 U/L Total Bilirubin 0.8 MG/DL Sodium Level 140 MEQ/L Potassium Level 3.1 MEQ/L Chloride Level 104 MEQ/L Carbon Dioxide Level 25.8 MEQ/L Anion Gap 10 MEQ/L Estimat Glomerular Filtration Rate 63 ML/MIN Lipase 88 U/L Magnesium Level 1.8 MG/DL Total Creatine Kinase 143 U/L Troponin I LESS THAN 0.02 NG/ML Physical Examination HEENT: PERRL; normocephalic; atraumatic; no jaundice. CHEST: CTA CARDIAC: RRR ABDOMEN: Soft, nondistended, nontender; no hepatosplenomegaly; bowel sounds are present in all four quadrants. coffee ground and dark red tinged emesis visualized in basin EXTREMITIES: No clubbing, cyanosis, or edema. SKIN: Normal; no rash; no jaundice. LEGISLATORS: No focal deficits; alert and oriented times three. (Bonita Alfonso) Assessment and Plan Plan ASSESSMENT - intractable n/v - unclear etiology. pt had redo hany 04/2018 and has had intermittent intractable n/v with CGE had EGD 06/07/17 found single ulcer distal esophagus, 100cc cge. follows with [facility] where she had surgery done and scheduled for EGD next Tuesday. - diarrhea - for last 2 months, intermittent and with incontinence. unclear etiology. stool studies neg. last colonoscopy 2011 and normal PLAN - EGD tomorrow - colonoscopy when she is able to tolerate prep - monitor labs - transfuse if needed - f/u with [facility] pt seen by myself and Dr Garcia and this note is on his behalf (Bonita Alfonso) Plan Patient was seen and examined, agree with above-noted, patient has significant heartburn and nausea vomiting with coffee-ground emesis, we'll plan on doing upper endoscopy tomorrow, continue PPI and monitoring hemoglobin (Jessie Garcia MD) Bonita Alfonso Aug 25, 2017 16:30 Jessie Garcia MD Aug 25, 2017 17:57
[2017-08-25] MEDS: SUCRALFATE 1 GM/10 ML CUP PO SCH ×2 (17:15→20:34)
[2017-08-25 17:17] VITALS: BP 144/70; PULSE 68; RESP 22
[2017-08-25] MEDS: 1/2 NS + KCL 20 MEQ INJ 1,000 ML IV SCH (17:32)
[2017-08-25] MEDS: POTASSIUM CHLOR 20 MEQ PREMIX 100 ML IV SCH ×2 (18:01→20:34)
[2017-08-25 18:02] VITALS: TEMP 99.2
[2017-08-25 18:24] LABS: PHOSPHORUS 2.7 MG/DL (2.5-4.9)
[2017-08-25 18:28] LABS: MAGNESIUM 1.6 MG/DL (1.5-2.5)
--- NOTE | 2017-08-25 18:28 | RADRPT ---
EXAM DATE/TIME: 08/25/2017 18:12 [facility] COMPARISON: No previous studies available for comparison. INDICATIONS : Intermittent nausea and vomiting x 2 weeks. Abdominal pain. ORAL CONTRAST: No oral contrast ingested. RADIATION DOSE: 13.32 CTDIvol (mGy) MEDICAL HISTORY : Gastroesophageal reflux disease. Cardiovascular disease Hernia, hiatal.Hypertension. SURGICAL HISTORY : Charlotte fundoplication. Hiatal hernia repair. ENCOUNTER: Initial ACUITY: 2 weeks PAIN SCALE: 4/10 LOCATION: Abdomen. TECHNIQUE: Volumetric scanning of the abdomen and pelvis was performed. Using automated exposure control and ad justment of the mA and/or kV according to patient size, radiation dose was kept as low as reasonably achievable to obtain optimal diagnostic quality images. DICOM format image data is available electro nically for review and comparison. FINDINGS: LOWER LUNGS: The visualized lower lungs are clear. LIVER: Homogeneous density without lesion. There is no dilation of the biliary tree. No calcified gallston es. SPLEEN: Normal size without lesion. PANCREAS: Within normal limits. KIDNEYS: Normal in size and shape. There is no mass, stone, or hydronephrosis. ADRENAL GLANDS: Within normal limits. VASCULAR: There is no aortic aneurysm. BOWEL/MESENTERY: No oral contrast was given limiting the sensitivity of the exam. There is a moderate size retrocardia c hiatal hernia. Scattered diverticula are noted greatest in the sigmoid colon. The stomach, small floyd wel, and colon demonstrate no acute abnormality. There is no free intraperitoneal air or fluid. ABDOMINAL WALL: Within normal limits. RETROPERITONEUM: There is no lymphadenopathy. BLADDER: No wall thickening or mass. REPRODUCTIVE: Within normal limits. INGUINAL: There is no lymphadenopathy or hernia. Postsurgical changes noted status post right inguinal hernia r epair. MUSCULOSKELETAL: Within normal limits for patient age. CONCLUSION: 1. Moderate size hiatal hernia. 2. Mild diverticulosis with no definite acute inflammatory change. Terence Hough MD on August 25, 2017 at 18:23 Board Certified Radiologist. This report was verified electronically.
[2017-08-25 20:00] VITALS: BP 119/60; PULSE 75; RESP 16; TEMP 99.7; O2SAT 97
[2017-08-25] MEDS: SODIUM CHLORIDE 0.9% FLUSH 10 ML FLUSH IV FLUSH SCH (20:34)
[2017-08-25] MEDS: POTASSIUM CHLORIDE 20 MEQ CONTROLLED RELEASE TAB PO SCH (20:34)
[2017-08-25] MEDS ORDERED: AMITIZA 8 MCG PO SCH (21:00)
[2017-08-26] VITALS (7 sets, daily range): BP systolic 121–138; BP diastolic 60–80; PULSE 62–73; RESP 16–20; TEMP 96.5–98.9; O2SAT 95–97
[2017-08-26] MEDS: 1/2 NS + KCL 20 MEQ INJ 1,000 ML IV SCH ×2 (05:38→15:50)
[2017-08-26] MEDS: LEVOTHYROXINE SODIUM 100 MCG TAB PO SCH (05:38)
[2017-08-26] MEDS: METOCLOPRAMIDE HCL 10 MG/2 ML VIAL IV PUSH PRN ×2 (06:00→21:37)
[2017-08-26 07:57] LABS: BASOPHIL % 0.2 % (0.0-2.0); EOSINOPHIL % 0.3 % (0.0-4.0); HEMATOCRIT 36.7 % (35.0-46.0); HEMOGLOBIN 12.4 GM/DL (11.6-15.3); LYMPH % 12.7 % (9.0-44.0); LYMPHOCYTE # 1.1 TH/MM3 (1.0-4.8); MEAN CELL VOLUME 89.7 FL (80.0-100.0); MEAN CORPUSCULAR HEMOGLOBIN 30.4 PG (27.0-34.0); MEAN CORPUSCULAR HGB CONC 33.9 % (32.0-36.0); MEAN PLATELET VOLUME 8.9 FL (7.0-11.0); MONO % 8.4 % (0.0-8.0); MONOCYTE # 0.8 TH/MM3 (0-0.9); NEUT % 78.4 % (16.0-70.0); PLATELET COUNT 206 TH/MM3 (150-450); RED CELL DISTRIBUTION WIDTH 13.5 % (11.6-17.2)
[2017-08-26 08:06] LABS: INTERNATIONAL NORMALIZED RATIO 1.1 RATIO; PROTHROMBIN TIME - PATIENT 10.9 SEC (9.8-11.6)
[2017-08-26] MEDS: SUCRALFATE 1 GM/10 ML CUP PO SCH ×4 (08:28→21:35)
[2017-08-26 08:40] LABS: ALBUMIN 2.9 GM/DL (3.4-5.0); ALKALINE PHOSPHATASE 51 U/L (45-117); ALT (GPT) 12 U/L (10-53); AST (GOT) 17 U/L (15-37); BICARBONATE 21.6 MEQ/L (21.0-32.0); BLOOD UREA NITROGEN 7 MG/DL (7-18); CALCIUM 8.5 MG/DL (8.5-10.1); CHLORIDE 113 MEQ/L (98-107); CREATININE 0.63 MG/DL (0.50-1.00); GLOMERULAR FILTRATION RATE 96 ML/MIN (>89); GLUCOSE,RANDOM 78 MG/DL (74-106); SODIUM (NA) 141 MEQ/L (136-145); TOTAL BILIRUBIN ADULT 0.7 MG/DL (0.2-1.0); TOTAL PROTEIN 6.4 GM/DL (6.4-8.2)
[2017-08-26] MEDS: POTASSIUM CHLORIDE 20 MEQ CONTROLLED RELEASE TAB PO SCH (08:45)
[2017-08-26] MEDS: SODIUM CHLORIDE 0.9% FLUSH 10 ML FLUSH IV FLUSH SCH ×2 (08:45→21:36)
[2017-08-26] MEDS ORDERED: APREPITANT 40 MG CAP ONE (09:42)
--- NOTE | 2017-08-26 10:30 | RADRPT ---
EXAM DATE/TIME: 08/26/2017 08:46 [facility] COMPARISON: No previous studies available for comparison. INDICATIONS : Vomiting and abdominal pain. MEDICAL HISTORY : Gastroesophageal reflux disease. Cardiovascular disease Hernia, hiatal.Hypertension SURGICAL HISTORY : Charlotte fundoplication. Hiatal hernia repair. ENCOUNTER: Initial ACUITY: 4 - 6 days PAIN SCORE: 7/10 LOCATION: Bilateral abdominal FINDINGS: Stool seen throughout the colon. No dilated loops of bowel are noted. No pneumatosis or free air. Sev eral small calcifications in the left pelvis likely reflect phleboliths. Surgical yissel are noted i n the right lower quadrant. Osseous structures are intact. CONCLUSION: 1. Nonobstructive bowel gas pattern. Roger Pepper MD on August 26, 2017 at 10:24 Board Certified Radiologist. This report was verified electronically.
--- NOTE | 2017-08-26 11:33 | PD.PROCEDR ---
GI Procedure PROCEDURE PERFORMED Upper endoscopy with biopsy INDICATION FOR PROCEDURE Nausea vomiting, history of hiatal hernia with Charlotte fundoplication 2, severe heartburn and reflux despite medication PROCEDURE: The procedure, risks and benefits were discussed with Ms. Delgado and informed consent was obtained. Anesthesia sedated her with Diprivan. She was placed in the left lateral decubitus position. EGD: The Pentax videoscope was introduced through the oropharynx and advanced to the second portion of the duodenum under direct visualization. Retroflexion was performed in the stomach. Biopsy from the duodenum, antrum, distal esophagus ESTIMATED BLOOD LOSS: None SPECIMENS REMOVED: Distal esophagus, antrum, duodenum COMPLICATIONS: None IMPRESSION: Severe esophagitis grade D at least involving the lower half of the esophagus, questionable Charissa, biopsy was done Hiatal hernia still exist with fluid pooling in it, retroflexion showing some surgical changes but not typical view after Charlotte fundoplication, irritation of the stomach could be from the nausea vomiting biopsy was done Redness and erythema in the duodenal biopsy was PLAN: Await biopsy results Protonix 40 mg twice daily If patient has Charissa she will need treatment Surgical consultation as an outpatient may be considered Antiemetic as needed Jessie Garcia MD Aug 26, 2017 11:33
--- NOTE | 2017-08-26 11:35 | HHI.GIFU ---
Subjective Remarks Patient laying in bed, feel comfortable, still having nausea and heartburn, had EGD today Objective Vitals I&O Vital Signs Date Time Temp Pulse Resp B/P (MAP) Pulse Ox O2 Delivery O2 Flow Rate FiO2 08/26/17 08:17 63 20 121/61 (81) 96 08/26/17 04:00 96.5 65 17 128/65 (86) 95 08/26/17 00:00 98.5 70 18 127/66 (86) 95 08/25/17 20:00 99.7 75 16 119/60 (79) 97 08/25/17 18:55 08/25/17 18:02 99.2 08/25/17 17:17 68 22 144/70 (94) Room Air 08/25/17 14:41 69 23 176/81 (112) 98 Room Air 08/25/17 14:41 98 Room Air 08/25/17 11:49 98.7 64 19 161/81 (107) 100 I/O 08/25/17 08/25/17 08/25/17 08/26/17 08/26/17 08/26/17 07:00 15:00 23:00 07:00 15:00 23:00 Intake Total 2000 ml 0 ml Balance 2000 ml 0 ml Intake Oral 0 ml IV Total 2000 ml # Voids 5 Laboratory Laboratory Tests Test 08/25/17 12:22 08/25/17 12:30 08/25/17 13:30 08/25/17 17:40 Urine Color YELLOW Urine Turbidity CLEAR Urine pH 8.5 Urine Specific [place] 1.021 Urine Protein 30 Urine Glucose (UA) 300 Urine Ketones 150 Urine Occult Blood NEG Urine Nitrite NEG Urine Bilirubin NEG Urine Urobilinogen LESS THAN 2.0 Urine Leukocyte Esterase NEG Urine RBC 1 Urine WBC 4 Urine Squamous Epithelial Cells 1 Urine Bacteria OCC Urine Mucus FEW Microscopic Urinalysis Comment CULT NOT INDICATED White Blood Count 10.9 Red Blood Count 4.61 Hemoglobin 14.1 Hematocrit 40.7 Mean Corpuscular Volume 88.2 Mean Corpuscular Hemoglobin 30.6 Mean Corpuscular Hemoglobin Concent 34.6 Red Cell Distribution Width 13.2 Platelet Count 271 Mean Platelet Volume 9.1 Neutrophils (%) (Auto) 94.5 Lymphocytes (%) (Auto) 3.3 Monocytes (%) (Auto) 2.1 Eosinophils (%) (Auto) 0.0 Basophils (%) (Auto) 0.1 Neutrophils # (Auto) 10.3 Lymphocytes # (Auto) 0.4 Monocytes # (Auto) 0.2 Eosinophils # (Auto) 0.0 Basophils # (Auto) 0.0 CBC Comment DIFF FINAL Differential Comment Blood Urea Nitrogen 11 Creatinine 0.91 Random Glucose 151 Total Protein 7.9 Albumin 3.9 Calcium Level 9.3 Alkaline Phosphatase 64 Aspartate Amino Transf (AST/SGOT) 17 Alanine Aminotransferase (ALT/SGPT) 15 Total Bilirubin 0.8 Sodium Level 140 Potassium Level 3.1 Chloride Level 104 Carbon Dioxide Level 25.8 Anion Gap 10 Estimat Glomerular Filtration Rate 63 Lipase 88 Magnesium Level 1.8 1.6 Total Creatine Kinase 143 Troponin I LESS THAN 0.02 Phosphorus Level 2.7 Test 08/26/17 06:35 White Blood Count 9.0 Red Blood Count 4.10 Hemoglobin 12.4 Hematocrit 36.7 Mean Corpuscular Volume 89.7 Mean Corpuscular Hemoglobin 30.4 Mean Corpuscular Hemoglobin Concent 33.9 Red Cell Distribution Width 13.5 Platelet Count 206 Mean Platelet Volume 8.9 Neutrophils (%) (Auto) 78.4 Lymphocytes (%) (Auto) 12.7 Monocytes (%) (Auto) 8.4 Eosinophils (%) (Auto) 0.3 Basophils (%) (Auto) 0.2 Neutrophils # (Auto) 7.0 Lymphocytes # (Auto) 1.1 Monocytes # (Auto) 0.8 Eosinophils # (Auto) 0.0 Basophils # (Auto) 0.0 CBC Comment DIFF FINAL Differential Comment Prothrombin Time 10.9 Prothromb Time International Ratio 1.1 Activated Partial Thromboplast Time 25.0 Blood Urea Nitrogen 7 Creatinine 0.63 Random Glucose 78 Total Protein 6.4 Albumin 2.9 Calcium Level 8.5 Alkaline Phosphatase 51 Aspartate Amino Transf (AST/SGOT) 17 Alanine Aminotransferase (ALT/SGPT) 12 Total Bilirubin 0.7 Sodium Level 141 Potassium Level 3.9 Chloride Level 113 Carbon Dioxide Level 21.6 Anion Gap 6 Estimat Glomerular Filtration Rate 96 Physical Exam HEENT: Pupils round and reactive to light; normocephalic; atraumatic; no jaundice. Throat is clear. NECK: Neck is supple, no JVD, no lymphadenopathy. CHEST: Chest is clear to auscultation and percussion. CARDIAC: Regular rate and rhythm with no murmur gallop or rubs. ABDOMEN: Soft, nondistended, nontender; no hepatosplenomegaly; bowel sounds are present in all four quadrants. EXTREMITIES: No clubbing, cyanosis, or edema. SKIN: Normal; no rash; no jaundice. DATA CENTER TECHNICIAN: No focal deficits; alert and oriented times three. Assessment and Plan Plan Patient was seen and examined, patient has significant heartburn and nausea vomiting with coffee-ground emesis, none today, endoscopy was done IMPRESSION: Severe esophagitis grade D at least involving the lower half of the esophagus, questionable Charissa, biopsy was done Hiatal hernia still exist with fluid pooling in it, retroflexion showing some surgical changes but not typical view after Charlotte fundoplication, irritation of the stomach could be from the nausea vomiting biopsy was done Redness and erythema in the duodenal biopsy was PLAN: Await biopsy results Protonix 40 mg twice daily If patient has Charissa she will need treatment Surgical consultation as an outpatient may be considered Antiemetic as needed Jessie Garcia MD Aug 26, 2017 11:35
[2017-08-26] MEDS ORDERED: PROPOFOL 200 MG/20 ML AMP IV ONE (12:00)
--- NOTE | 2017-08-26 14:14 | HHI.PR ---
Subjective Remarks Patient evaluated S/P EGD today Patient continues to have nausea with no vomiting Objective Vitals Vital Signs Date Time Temp Pulse Resp B/P (MAP) Pulse Ox O2 Delivery O2 Flow Rate FiO2 08/26/17 12:05 98.2 70 20 128/60 (82) 96 08/26/17 08:17 63 20 121/61 (81) 96 08/26/17 04:00 96.5 65 17 128/65 (86) 95 08/26/17 00:00 98.5 70 18 127/66 (86) 95 08/25/17 20:00 99.7 75 16 119/60 (79) 97 08/25/17 18:55 08/25/17 18:02 99.2 08/25/17 17:17 68 22 144/70 (94) Room Air 08/25/17 14:41 69 23 176/81 (112) 98 Room Air 08/25/17 14:41 98 Room Air 08/26/17 08/26/17 08/27/17 15:00 23:00 07:00 Intake Total 200 ml Balance 200 ml Other 200 ml Result Diagram: 08/26/17 0635 08/26/17 0635 Other Results Laboratory Tests Test 08/25/17 12:22 08/25/17 12:30 08/25/17 13:30 08/25/17 17:40 Urine Color YELLOW Urine Turbidity CLEAR Urine pH 8.[address] 1.021 Urine Protein 30 mg/dL Urine Glucose (UA) 300 mg/dL Urine Ketones 150 mg/dL Urine Occult Blood NEG Urine Nitrite NEG Urine Bilirubin NEG Urine Urobilinogen LESS THAN 2.0 MG/DL Urine Leukocyte Esterase NEG Urine RBC 1 /hpf Urine WBC 4 /hpf Urine Squamous Epithelial Cells 1 /hpf Urine Bacteria OCC /hpf Urine Mucus FEW /lpf Microscopic Urinalysis Comment CULT NOT INDICATED White Blood Count 10.9 TH/MM3 Red Blood Count 4.61 MIL/MM3 Hemoglobin 14.1 GM/DL Hematocrit 40.7 % Mean Corpuscular Volume 88.2 FL Mean Corpuscular Hemoglobin 30.6 PG Mean Corpuscular Hemoglobin Concent 34.6 % Red Cell Distribution Width 13.2 % Platelet Count 271 TH/MM3 Mean Platelet Volume 9.1 FL Neutrophils (%) (Auto) 94.5 % Lymphocytes (%) (Auto) 3.3 % Monocytes (%) (Auto) 2.1 % Eosinophils (%) (Auto) 0.0 % Basophils (%) (Auto) 0.1 % Neutrophils # (Auto) 10.3 TH/MM3 Lymphocytes # (Auto) 0.4 TH/MM3 Monocytes # (Auto) 0.2 TH/MM3 Eosinophils # (Auto) 0.0 TH/MM3 Basophils # (Auto) 0.0 TH/MM3 CBC Comment DIFF FINAL Differential Comment Blood Urea Nitrogen 11 MG/DL Creatinine 0.91 MG/DL Random Glucose 151 MG/DL Total Protein 7.9 GM/DL Albumin 3.9 GM/DL Calcium Level 9.3 MG/DL Alkaline Phosphatase 64 U/L Aspartate Amino Transf (AST/SGOT) 17 U/L Alanine Aminotransferase (ALT/SGPT) 15 U/L Total Bilirubin 0.8 MG/DL Sodium Level 140 MEQ/L Potassium Level 3.1 MEQ/L Chloride Level 104 MEQ/L Carbon Dioxide Level 25.8 MEQ/L Anion Gap 10 MEQ/L Estimat Glomerular Filtration Rate 63 ML/MIN Lipase 88 U/L Magnesium Level 1.8 MG/DL 1.6 MG/DL Total Creatine Kinase 143 U/L Troponin I LESS THAN 0.02 NG/ML Phosphorus Level 2.7 MG/DL Test 08/26/17 06:35 White Blood Count 9.0 TH/MM3 Red Blood Count 4.10 MIL/MM3 Hemoglobin 12.4 GM/DL Hematocrit 36.7 % Mean Corpuscular Volume 89.7 FL Mean Corpuscular Hemoglobin 30.4 PG Mean Corpuscular Hemoglobin Concent 33.9 % Red Cell Distribution Width 13.5 % Platelet Count 206 TH/MM3 Mean Platelet Volume 8.9 FL Neutrophils (%) (Auto) 78.4 % Lymphocytes (%) (Auto) 12.7 % Monocytes (%) (Auto) 8.4 % Eosinophils (%) (Auto) 0.3 % Basophils (%) (Auto) 0.2 % Neutrophils # (Auto) 7.0 TH/MM3 Lymphocytes # (Auto) 1.1 TH/MM3 Monocytes # (Auto) 0.8 TH/MM3 Eosinophils # (Auto) 0.0 TH/MM3 Basophils # (Auto) 0.0 TH/MM3 CBC Comment DIFF FINAL Differential Comment Prothrombin Time 10.9 SEC Prothromb Time International Ratio 1.1 RATIO Activated Partial Thromboplast Time 25.0 SEC Blood Urea Nitrogen 7 MG/DL Creatinine 0.63 MG/DL Random Glucose 78 MG/DL Total Protein 6.4 GM/DL Albumin 2.9 GM/DL Calcium Level 8.5 MG/DL Alkaline Phosphatase 51 U/L Aspartate Amino Transf (AST/SGOT) 17 U/L Alanine Aminotransferase (ALT/SGPT) 12 U/L Total Bilirubin 0.7 MG/DL Sodium Level 141 MEQ/L Potassium Level 3.9 MEQ/L Chloride Level 113 MEQ/L Carbon Dioxide Level 21.6 MEQ/L Anion Gap 6 MEQ/L Estimat Glomerular Filtration Rate 96 ML/MIN Imaging Last Impressions Abdomen X-Ray 08/26/17 0600 Signed Impressions: Service Date/Time: Saturday, August 26, 2017 08:46 - CONCLUSION: 1. Nonobstructive bowel gas pattern. Roger Pepper MD Abdomen/Pelvis CT 08/25/17 0000 Signed Impressions: Service Date/Time: August 18:12 - CONCLUSION: 1. Moderate size hiatal hernia. 2. Mild diverticulosis with no definite acute inflammatory change. Terence Hough MD Objective Remarks GENERAL: This is a well-nourished, well-developed patient, in no apparent distress. CARDIOVASCULAR: Regular rate and rhythm RESPIRATORY: Clear to auscultation. Breath sounds equal bilaterally. GASTROINTESTINAL: Abdomen soft, nondistended. MUSCULOSKELETAL: Extremities without clubbing, cyanosis, or edema. NEURO: Alert & Oriented x4 to person, place, time, situation. Moves all ext x4 Procedures EGD 08/[address] Garcia A/P Problem List: (1) Intractable vomiting ICD Codes: R11.10 - Vomiting, unspecified Status: Acute Plan: Intractable vomiting - Patient has had Charlotte fundoplication 2008 with recent laparoscopic Charlotte fundoplication redo May 06, 2017 at [facility] by Dr. Darling. Patient also recently hospitalized 06/06/17 to 06/08/17 for similar symptoms. - Patient had an EGD on 06/07/17 --> Single ulcer ranging between 3-5 mm in size was found in the distal esophagus and 100cc of coffee grounds in the stomach - Will continue Clopamine and Reglan. Patient has been taking Zofran and Phenergan at home with no relief. Also QTcH 482 - CBC and BMP reviewed - potassium 3.1 replaced -> 3.9 (08/26) - IV fluids for hydration - KUB reviewed reveals Nonobstructive bowel gas pattern. Stool present - Dulcolax Supp and colace PO BID - Consult GI, appreciate input. EGD (08/26) impression: Severe esophagitis grade D at least involving the lower half of the esophagus, questionable Charissa , biopsy was done Hiatal hernia still exist with fluid pooling in it, retroflexion showing some surgical changes but not typical view after Charlotte fundoplication, irritation of the stomach could be from the nausea vomiting biopsy was done Redness and erythema in the duodenal biopsy was - GI recommending Protonix 40 mg twice daily, Surgical consultation as an outpatient may be considered and Antiemetic as needed - Start Diflucan 200 mg daily (2) Esophageal ulcer ICD Codes: K22.10 - Ulcer of esophagus without bleeding Plan: - Patient had an EGD on 06/07/17 --> Single ulcer ranging between 3-5 mm in size was found in the distal esophagus and 100cc of coffee grounds in the stomach - EGD (08/26) impression: Severe esophagitis grade D at least involving the lower half of the esophagus, questionable Charissa, biopsy was done Hiatal hernia still exist with fluid pooling in it, retroflexion showing some surgical changes but not typical view after [place] fundoplication, irritation of the stomach could be from the nausea vomiting biopsy was done Redness and erythema in the duodenal biopsy was (3) Obstructive sleep apnea ICD Codes: G47.33 - Obstructive sleep apnea (adult) (pediatric) Status: Chronic Plan: - May use home CPAP (4) GERD (gastroesophageal reflux disease) ICD Codes: K21.9 - Gastro-esophageal reflux disease without esophagitis Status: Chronic Plan: - continue PPI (5) Hypothyroidism ICD Codes: E03.9 - Hypothyroidism, unspecified Status: Chronic Plan: - Continue home Synthroid dose (6) Fibromyalgia ICD Codes: M79.7 - Fibromyalgia Status: Chronic Plan: - Failed multiple outpatient therapies per her report. Assessment and Plan Patient examined. Assessment and plan formulated with Shwetha BARRAGAN I agree with the above. EGD (08/26/17) with Dr. Lucas Garcia showed gastritis and esophagitis - continue carafate - protonix BID - possible esophagitis. Start diflucan - repeat CBC in AM - If Hg remains stable, then likely d/c to home 08/27/17 Problem Qualifiers (1) Intractable vomiting: Qualified Codes: R11.2 - Nausea with vomiting, unspecified Shwetha Fitzpatrick Aug 26, 2017 14:14 Duane Johnson DO Aug 26, 2017 22:28
[2017-08-26] MEDS ORDERED: MAGNESIUM HYDROXIDE SUSP 30 ML CUP PO PRN (14:45)
[2017-08-26] MEDS ORDERED: BISACODYL 10 MG SUPP RECTAL ONE (14:45)
[2017-08-26] MEDS: PANTOPRAZOLE SOD 40 MG DELAYED RELEASE TAB PO SCH ×2 (15:05→21:35)
[2017-08-26] MEDS ORDERED: FLUCONAZOLE 200 MG TAB PO SCH (16:00)
--- NOTE | 2017-08-26 19:45 | EKG ---
Date Performed: 08/25/2017 Time Performed: 12:33:50 PTAGE: 62 years EKG: Sinus rhythm WITH SINUS ARRHYTHMIA PROLONGED QT INTERVAL ABNORMAL ECG Since the previous tracing, no significant change noted NO PREVIOUS TRACING DOCTOR: Alan Pablo Interpretating Date/Time 08/26/2017 19:44:12
[2017-08-26] MEDS: DOCUSATE SODIUM 100 MG CAP PO SCH (20:05)
[2017-08-27] MEDS: 1/2 NS + KCL 20 MEQ INJ 1,000 ML IV SCH (00:23)
[2017-08-27 03:53] VITALS: BP 130/75; PULSE 63; RESP 16; TEMP 98.9; O2SAT 97
[2017-08-27] MEDS: LEVOTHYROXINE SODIUM 100 MCG TAB PO SCH (05:27)
[2017-08-27 05:57] LABS: AUTOMATED NEUTROPHIL # 4.4 TH/MM3 (1.8-7.7); BASOPHIL % 0.4 % (0.0-2.0); EOSINOPHIL # 0.1 TH/MM3 (0-0.4); HEMATOCRIT 36.7 % (35.0-46.0); HEMOGLOBIN 12.4 GM/DL (11.6-15.3); LYMPH % 19.1 % (9.0-44.0); LYMPHOCYTE # 1.2 TH/MM3 (1.0-4.8); MEAN CELL VOLUME 88.8 FL (80.0-100.0); MEAN CORPUSCULAR HEMOGLOBIN 30.1 PG (27.0-34.0); MEAN CORPUSCULAR HGB CONC 33.9 % (32.0-36.0); MEAN PLATELET VOLUME 8.6 FL (7.0-11.0); MONO % 9.3 % (0.0-8.0); MONOCYTE # 0.6 TH/MM3 (0-0.9); NEUT % 69.2 % (16.0-70.0); PLATELET COUNT 202 TH/MM3 (150-450); RED BLOOD COUNT 4.13 MIL/MM3 (4.00-5.30); RED CELL DISTRIBUTION WIDTH 13.2 % (11.6-17.2); WHITE BLOOD COUNT 6.3 TH/MM3 (4.0-11.0)
[2017-08-27 06:15] LABS: CALCIUM 8.6 MG/DL (8.5-10.1); CREATININE 0.67 MG/DL (0.50-1.00); MAGNESIUM 1.9 MG/DL (1.5-2.5)
[2017-08-27] MEDS: SUCRALFATE 1 GM/10 ML CUP PO SCH ×2 (08:48→12:00)
[2017-08-27] MEDS: SODIUM CHLORIDE 0.9% FLUSH 10 ML FLUSH IV FLUSH SCH (08:48)
[2017-08-27] MEDS: PANTOPRAZOLE SOD 40 MG DELAYED RELEASE TAB PO SCH (08:48)
[2017-08-27] MEDS: DOCUSATE SODIUM 100 MG CAP PO SCH (08:48)
[2017-08-27 08:51] VITALS: BP 12/60; PULSE 65; RESP 18; TEMP 98.2; O2SAT 99
--- NOTE | 2017-08-27 09:59 | HHI.GIFU ---
Subjective Remarks Pt rsting in bed. Endorses nausea but no vomiting. She is frustrated that she still has a hiatal hernia. (Bonita Alfonso) Objective Vitals I&O Vital Signs Date Time Temp Pulse Resp B/P (MAP) Pulse Ox O2 Delivery O2 Flow Rate FiO2 08/27/17 08:51 98.2 65 18 12/60 (44) 99 08/27/17 03:53 98.9 63 16 130/75 (93) 97 08/26/17 23:10 98.6 73 16 124/69 (87) 97 08/26/17 19:41 98.9 64 18 138/75 (96) 97 08/26/17 16:26 98.2 62 20 138/80 (99) 96 08/26/17 12:05 98.2 70 20 128/60 (82) 96 I/O 08/26/17 08/26/17 08/26/17 08/27/17 08/27/17 08/27/17 07:00 15:00 23:00 07:00 15:00 23:00 Intake Total 0 ml 200 ml 250 ml Balance 0 ml 200 ml 250 ml Intake Oral 0 ml 250 ml Other 200 ml # Voids 5 Laboratory Laboratory Tests Test 08/27/17 05:23 White Blood Count 6.3 Red Blood Count 4.13 Hemoglobin 12.4 Hematocrit 36.7 Mean Corpuscular Volume 88.8 Mean Corpuscular Hemoglobin 30.1 Mean Corpuscular Hemoglobin Concent 33.9 Red Cell Distribution Width 13.2 Platelet Count 202 Mean Platelet Volume 8.6 Neutrophils (%) (Auto) 69.2 Lymphocytes (%) (Auto) 19.1 Monocytes (%) (Auto) 9.3 Eosinophils (%) (Auto) 2.0 Basophils (%) (Auto) 0.4 Neutrophils # (Auto) 4.4 Lymphocytes # (Auto) 1.2 Monocytes # (Auto) 0.6 Eosinophils # (Auto) 0.1 Basophils # (Auto) 0.0 CBC Comment DIFF FINAL Differential Comment Blood Urea Nitrogen 7 Creatinine 0.67 Random Glucose 85 Calcium Level 8.6 Magnesium Level 1.9 Sodium Level 141 Potassium Level 3.8 Chloride Level 107 Carbon Dioxide Level 26.0 Anion Gap 8 Estimat Glomerular Filtration Rate 90 Imaging Last Impressions Abdomen X-Ray 08/26/17 0600 Signed Impressions: Service Date/Time: Saturday, August 26, 2017 08:46 - CONCLUSION: 1. Nonobstructive bowel gas pattern. Roger Pepper MD Abdomen/Pelvis CT 08/25/17 0000 Signed Impressions: Service Date/Time: August 18:12 - CONCLUSION: 1. Moderate size hiatal hernia. 2. Mild diverticulosis with no definite acute inflammatory change. Terence Hough MD Physical Exam HEENT: PERRL; normocephalic; atraumatic; no jaundice. CHEST: CTA CARDIAC: RRR ABDOMEN: Soft, nondistended, nontender; no hepatosplenomegaly; bowel sounds are present in all four quadrants. EXTREMITIES: No clubbing, cyanosis, or edema. SKIN: Normal; no rash; no jaundice. EMAIL DEVELOPER: No focal deficits; alert and oriented times three. (Bonita Alfonso) Assessment and Plan Plan ASSESSMENT - intractable n/v - unclear etiology. pt had redo hany 04/2018 and has had intermittent intractable n/v with CGE had EGD 06/07/17 found single ulcer distal esophagus, 100cc cge. follows with [facility] where she had surgery done and scheduled for EGD next Tuesday. - diarrhea - for last 2 months, intermittent and with incontinence. unclear etiology. stool studies neg. last colonoscopy 2011 and normal 08/26/17 Patient was seen and examined, patient has significant heartburn and nausea vomiting with coffee-ground emesis, none today, endoscopy was done IMPRESSION: Severe esophagitis grade D at least involving the lower half of the esophagus, questionable Charissa, biopsy was done Hiatal hernia still exist with fluid pooling in it, retroflexion showing some surgical changes but not typical view after Hany fundoplication, irritation of the stomach could be from the nausea vomiting biopsy was done Redness and erythema in the duodenal biopsy was 08/27/17 + nausea no vomiting. s/p EGD as above. pt frustrated about persistant hiatal hernia and gastroparesis. she feels constipated despite stool softeners, MOM. PLAN - low residue diet - ensure - glycerin supp - senokot x 1 - consider short term use reglan - consider bethanechol - follow up with [facility] - follow up with GI after d/c, inquire re low dose linzess, d/w pt pt seen by myself and dr Garcia and this note is on his behalf (Bonita Alfonso) Plan Patient was seen and examined, agree with above note, patient feels okay still have some reflux, frustrated about the finding on EGD, she did not have bowel movement, she is on stool softener, okay to follow-up at [facility] and office in 1-2 weeks, (Jessie Garcia MD) Bonita Alfonso Aug 27, 2017 09:59 Jessie Garcia MD Aug 27, 2017 14:32
[2017-08-27] MEDS ORDERED: GLYCERIN ADULT 2 GM SUPP RECTAL ONE (10:00)
[2017-08-27] MEDS ORDERED: SENNOSIDES 8.6 MG TAB PO ONE (10:00)
[2017-08-27] MEDS ORDERED: SOD PHOSPHATE/SOD BIPHOSPHATE (ADULT) ENEMA 133ML RECTAL ONE (10:30)
--- NOTE | 2017-08-27 10:30 | HHI.PR ---
Subjective Remarks Patient no longer having vomiting endorses continued nausea Objective Vitals Vital Signs Date Time Temp Pulse Resp B/P (MAP) Pulse Ox O2 Delivery O2 Flow Rate FiO2 08/27/17 08:51 98.2 65 18 12/60 (44) 99 08/27/17 03:53 98.9 63 16 130/75 (93) 97 08/26/17 23:10 98.6 73 16 124/69 (87) 97 08/26/17 19:41 98.9 64 18 138/75 (96) 97 08/26/17 16:26 98.2 62 20 138/80 (99) 96 08/26/17 12:05 98.2 70 20 128/60 (82) 96 08/27/17 08/27/17 08/28/17 14:59 22:59 06:59 Intake Total 250 ml Balance 250 ml Intake Oral 250 ml Result Diagram: 08/27/17 0523 08/27/17 0523 Other Results Laboratory Tests Test 08/25/17 12:22 08/25/17 12:30 08/25/17 13:30 08/25/17 17:40 Urine Color YELLOW Urine Turbidity CLEAR Urine pH 8.5 Urine Specific [place] 1.021 Urine Protein 30 mg/dL Urine Glucose (UA) 300 mg/dL Urine Ketones 150 mg/dL Urine Occult Blood NEG Urine Nitrite NEG Urine Bilirubin NEG Urine Urobilinogen LESS THAN 2.0 MG/DL Urine Leukocyte Esterase NEG Urine RBC 1 /hpf Urine WBC 4 /hpf Urine Squamous Epithelial Cells 1 /hpf Urine Bacteria OCC /hpf Urine Mucus FEW /lpf Microscopic Urinalysis Comment CULT NOT INDICATED White Blood Count 10.9 TH/MM3 Red Blood Count 4.61 MIL/MM3 Hemoglobin 14.1 GM/DL Hematocrit 40.7 % Mean Corpuscular Volume 88.2 FL Mean Corpuscular Hemoglobin 30.6 PG Mean Corpuscular Hemoglobin Concent 34.6 % Red Cell Distribution Width 13.2 % Platelet Count 271 TH/MM3 Mean Platelet Volume 9.1 FL Neutrophils (%) (Auto) 94.5 % Lymphocytes (%) (Auto) 3.3 % Monocytes (%) (Auto) 2.1 % Eosinophils (%) (Auto) 0.0 % Basophils (%) (Auto) 0.1 % Neutrophils # (Auto) 10.3 TH/MM3 Lymphocytes # (Auto) 0.4 TH/MM3 Monocytes # (Auto) 0.2 TH/MM3 Eosinophils # (Auto) 0.0 TH/MM3 Basophils # (Auto) 0.0 TH/MM3 CBC Comment DIFF FINAL Differential Comment Blood Urea Nitrogen 11 MG/DL Creatinine 0.91 MG/DL Random Glucose 151 MG/DL Total Protein 7.9 GM/DL Albumin 3.9 GM/DL Calcium Level 9.3 MG/DL Alkaline Phosphatase 64 U/L Aspartate Amino Transf (AST/SGOT) 17 U/L Alanine Aminotransferase (ALT/SGPT) 15 U/L Total Bilirubin 0.8 MG/DL Sodium Level 140 MEQ/L Potassium Level 3.1 MEQ/L Chloride Level 104 MEQ/L Carbon Dioxide Level 25.8 MEQ/L Anion Gap 10 MEQ/L Estimat Glomerular Filtration Rate 63 ML/MIN Lipase 88 U/L Magnesium Level 1.8 MG/DL 1.6 MG/DL Total Creatine Kinase 143 U/L Troponin I LESS THAN 0.02 NG/ML Phosphorus Level 2.7 MG/DL Test 08/26/17 06:35 08/27/17 05:23 White Blood Count 9.0 TH/MM3 6.3 TH/MM3 Red Blood Count 4.10 MIL/MM3 4.13 MIL/MM3 Hemoglobin 12.4 GM/DL 12.4 GM/DL Hematocrit 36.7 % 36.7 % Mean Corpuscular Volume 89.7 FL 88.8 FL Mean Corpuscular Hemoglobin 30.4 PG 30.1 PG Mean Corpuscular Hemoglobin Concent 33.9 % 33.9 % Red Cell Distribution Width 13.5 % 13.2 % Platelet Count 206 TH/MM3 202 TH/MM3 Mean Platelet Volume 8.9 FL 8.6 FL Neutrophils (%) (Auto) 78.4 % 69.2 % Lymphocytes (%) (Auto) 12.7 % 19.1 % Monocytes (%) (Auto) 8.4 % 9.3 % Eosinophils (%) (Auto) 0.3 % 2.0 % Basophils (%) (Auto) 0.2 % 0.4 % Neutrophils # (Auto) 7.0 TH/MM3 4.4 TH/MM3 Lymphocytes # (Auto) 1.1 TH/MM3 1.2 TH/MM3 Monocytes # (Auto) 0.8 TH/MM3 0.6 TH/MM3 Eosinophils # (Auto) 0.0 TH/MM3 0.1 TH/MM3 Basophils # (Auto) 0.0 TH/MM3 0.0 TH/MM3 CBC Comment DIFF FINAL DIFF FINAL Differential Comment Prothrombin Time 10.9 SEC Prothromb Time International Ratio 1.1 RATIO Activated Partial Thromboplast Time 25.0 SEC Blood Urea Nitrogen 7 MG/DL 7 MG/DL Creatinine 0.63 MG/DL 0.67 MG/DL Random Glucose 78 MG/DL 85 MG/DL Total Protein 6.4 GM/DL Albumin 2.9 GM/DL Calcium Level 8.5 MG/DL 8.6 MG/DL Alkaline Phosphatase 51 U/L Aspartate Amino Transf (AST/SGOT) 17 U/L Alanine Aminotransferase (ALT/SGPT) 12 U/L Total Bilirubin 0.7 MG/DL Sodium Level 141 MEQ/L 141 MEQ/L Potassium Level 3.9 MEQ/L 3.8 MEQ/L Chloride Level 113 MEQ/L 107 MEQ/L Carbon Dioxide Level 21.6 MEQ/L 26.0 MEQ/L Anion Gap 6 MEQ/L 8 MEQ/L Estimat Glomerular Filtration Rate 96 ML/MIN 90 ML/MIN Magnesium Level 1.9 MG/DL Imaging Last Impressions Abdomen X-Ray 08/26/17 0600 Signed Impressions: Service Date/Time: Saturday, August 26, 2017 08:46 - CONCLUSION: 1. Nonobstructive bowel gas pattern. Roger Pepper MD Abdomen/Pelvis CT 08/25/17 0000 Signed Impressions: Service Date/Time: August 18:12 - CONCLUSION: 1. Moderate size hiatal hernia. 2. Mild diverticulosis with no definite acute inflammatory change. Terence Hough MD Objective Remarks GENERAL: This is a well-nourished, well-developed patient, in no apparent distress. CARDIOVASCULAR: Regular rate and rhythm RESPIRATORY: Clear to auscultation. Breath sounds equal bilaterally. GASTROINTESTINAL: Abdomen soft, nondistended. hypoactive bowel sounds through out 4 quadrants MUSCULOSKELETAL: Extremities without clubbing, cyanosis, or edema. NEURO: Alert & Oriented x4 to person, place, time, situation. Moves all ext x4 Procedures EGD 08/[address] Garcia A/P Problem List: (1) Intractable vomiting ICD Codes: R11.10 - Vomiting, unspecified Status: Acute Plan: Intractable vomiting - Patient has had Charlotte fundoplication 2008 with recent laparoscopic Charlotte fundoplication redo May 06, 2017 at [facility] by Dr. Darling. Patient also recently hospitalized 06/06/17 to 06/08/17 for similar symptoms. - Patient had an EGD on 06/07/17 --> Single ulcer ranging between 3-5 mm in size was found in the distal esophagus and 100cc of coffee grounds in the stomach - Will continue Clopamine and Reglan. Patient has been taking Zofran and Phenergan at home with no relief. Also QTcH 482 - CBC and BMP reviewed - potassium 3.1 replaced -> 3.9 (08/26) - IV fluids for hydration - KUB reviewed reveals Nonobstructive bowel gas pattern. Stool present - Dulcolax Supp and colace PO BID - Consult GI, appreciate input. EGD (08/26) impression: Severe esophagitis grade D at least involving the lower half of the esophagus, questionable Charissa , biopsy was done Hiatal hernia still exist with fluid pooling in it, retroflexion showing some surgical changes but not typical view after Charlotte fundoplication, irritation of the stomach could be from the nausea vomiting biopsy was done Redness and erythema in the duodenal biopsy was - GI recommending Protonix 40 mg twice daily, Surgical consultation as an outpatient may be considered and Antiemetic as needed - continue Carafate - Diflucan 200 mg daily (2) Esophageal ulcer ICD Codes: K22.10 - Ulcer of esophagus without bleeding Plan: - Patient had an EGD on 06/07/17 --> Single ulcer ranging between 3-5 mm in size was found in the distal esophagus and 100cc of coffee grounds in the stomach - EGD (08/26) impression: Severe esophagitis grade D at least involving the lower half of the esophagus, questionable Charissa, biopsy was done Hiatal hernia still exist with fluid pooling in it, retroflexion showing some surgical changes but not typical view after [place] fundoplication, irritation of the stomach could be from the nausea vomiting biopsy was done Redness and erythema in the duodenal biopsy was (3) Obstructive sleep apnea ICD Codes: G47.33 - Obstructive sleep apnea (adult) (pediatric) Status: Chronic Plan: - May use home CPAP (4) GERD (gastroesophageal reflux disease) ICD Codes: K21.9 - Gastro-esophageal reflux disease without esophagitis Status: Chronic Plan: - continue PPI (5) Hypothyroidism ICD Codes: E03.9 - Hypothyroidism, unspecified Status: Chronic Plan: - Continue home Synthroid dose (6) Fibromyalgia ICD Codes: M79.7 - Fibromyalgia Status: Chronic Plan: - Failed multiple outpatient therapies per her report. (7) Constipation ICD Codes: K59.00 - Constipation, unspecified Plan: Patient reports no BM for the past, "few days." denies flatus KUB (08/26) demonstrated a nonobstructive bowel gas pattern no result from stool softeners and Dulcolax suppository yesterday continue stool softeners GI added Senokot and glycerin supp add Fleets enema if no result from supp Problem Qualifiers (1) Intractable vomiting: Qualified Codes: R11.2 - Nausea with vomiting, unspecified Shwetha Fitzpatrick Aug 27, 2017 10:30
[2017-08-27] MEDS ORDERED: SUCR1S PO (11:08)
[2017-08-27] MEDS ORDERED: DIFL200T PO (11:13)
[2017-08-27] MEDS ORDERED: PROT40TA PO (11:13)
[2017-08-27] MEDS ORDERED: PROCHLORPERAZINE INJ 10 MG/2 ML VIAL IV PUSH PRN (11:15)
[2017-08-27] MEDS ORDERED: REGL5TAB PO (11:32)
--- NOTE | 2017-08-27 16:25 | HHI.DCPOC ---
Discharge Care Plan Diagnosis: (1) Esophagitis (2) Intractable vomiting (3) Constipation Goals to Promote Your Health * To prevent worsening of your condition and complications * To maintain your health at the optimal level Directions to Meet Your Goals Take your medications as prescribed Follow your dietary instruction Follow activity as directed Keep your appointments as scheduled Take your immunizations and boosters as scheduled If your symptoms worsen call your PCP, if no PCP go to Urgent Care Center or Emergency Room Smoking is Dangerous to Your Health. Avoid second hand smoke Call the 24-hour hour crisis hotline for domestic abuse at Shwetha Fitzpatrick Aug 27, 2017 16:25
--- NOTE | 2017-08-27 16:31 | HHI.DS ---
Discharge Summary Admission Date Aug 25, 2017 at 15:42 Discharge Date: Aug 27, 2017 Admitting Diagnosis intractable vomiting (1) Intractable vomiting Diagnosis: Principal ICD Codes: R11.10 - Vomiting, unspecified Status: Acute (2) Esophageal ulcer Diagnosis: Principal ICD Codes: K22.10 - Ulcer of esophagus without bleeding (3) Obstructive sleep apnea Diagnosis: Secondary ICD Codes: G47.33 - Obstructive sleep apnea (adult) (pediatric) Status: Chronic (4) GERD (gastroesophageal reflux disease) Diagnosis: Secondary ICD Codes: K21.9 - Gastro-esophageal reflux disease without esophagitis Status: Chronic (5) Hypothyroidism Diagnosis: Secondary ICD Codes: E03.9 - Hypothyroidism, unspecified Status: Chronic (6) Fibromyalgia Diagnosis: Secondary ICD Codes: M79.7 - Fibromyalgia Status: Chronic (7) Constipation Diagnosis: Secondary ICD Codes: K59.00 - Constipation, unspecified Consultants Dr. Garcia, GI Procedures EGD 08/[address] Garcia Brief History This is a 62-year-old female who presents to the emergency department having had a hiatal hernia repair, gastroparesis (per patient she does not respond to Reglan or erythromycin) and Charlotte fundoplication redo May 06, [address] [facility] by Dr. Darling who presents to the emergency department with vomiting. After eating last night and has been having recurrent vomiting since 2 AM. She states that she has been having intermitted vomiting for the past 2 weeks but today patient is having coffee-ground emesis. Patient denies feeling dizzy or lightheaded, diarrhea, states she has not had a recent bowel movement. Patient follows with [facility] and Dr. Verma locally. Patient did take Zofran sublingual as well as Phenergan by mouth at home with no improvement. Moderate severity. Patient denies chest pain, SOB, fevers or chills. CBC/BMP: 08/27/17 0523 08/27/17 0523 Significant Findings Laboratory Tests Test 08/25/17 12:22 08/25/17 12:30 08/25/17 13:30 08/25/17 17:40 Urine Protein 30 mg/dL (NEG-TRACE) Urine Glucose (UA) 300 mg/dL (NEG) Urine Ketones 150 mg/dL (NEG) Urine Bacteria OCC /hpf (NONE) Urine Mucus FEW /lpf (OCC) Neutrophils (%) (Auto) 94.5 % (16.0-70.0) Lymphocytes (%) (Auto) 3.3 % (9.0-44.0) Neutrophils # (Auto) 10.3 TH/MM3 (1.8-7.7) Lymphocytes # (Auto) 0.4 TH/MM3 (1.0-4.8) Random Glucose 151 MG/DL (74-106) Potassium Level 3.1 MEQ/L (3.5-5.1) Estimat Glomerular Filtration Rate 63 ML/MIN (>89) Troponin I LESS THAN 0.02 NG/ML Test 08/26/17 06:35 08/27/17 05:23 Neutrophils (%) (Auto) 78.4 % (16.0-70.0) Monocytes (%) (Auto) 8.4 % (0.0-8.0) 9.3 % (0.0-8.0) Albumin 2.9 GM/DL (3.4-5.0) Chloride Level 113 MEQ/L (98-107) Imaging Last Impressions Abdomen X-Ray 08/26/17 0600 Signed Impressions: Service Date/Time: Saturday, August 26, 2017 08:46 - CONCLUSION: 1. Nonobstructive bowel gas pattern. Roger Pepper MD Abdomen/Pelvis CT 08/25/17 0000 Signed Impressions: Service Date/Time: August 18:12 - CONCLUSION: 1. Moderate size hiatal hernia. 2. Mild diverticulosis with no definite acute inflammatory change. Terence Hough MD PE at Discharge GENERAL: This is a well-nourished, well-developed patient, in no apparent distress. CARDIOVASCULAR: Regular rate and rhythm RESPIRATORY: Clear to auscultation. Breath sounds equal bilaterally. GASTROINTESTINAL: Abdomen soft, nondistended. hypoactive bowel sounds through out 4 quadrants MUSCULOSKELETAL: Extremities without clubbing, cyanosis, or edema. NEURO: Alert & Oriented x4 to person, place, time, situation. Moves all ext x4 Hospital Course Intractable vomiting - Patient has had Charlotte fundoplication 2008 with recent laparoscopic Charlotte fundoplication redo May 06, [address] [facility] by Dr. Darling. Patient also recently hospitalized 06/06/17 to 06/08/17 for similar symptoms. - Patient had an EGD on 06/07/17 --> Single ulcer ranging between 3-5 mm in size was found in the distal esophagus and 100cc of coffee grounds in the stomach - Will continue Clopamine and Reglan. Patient has been taking Zofran and Phenergan at home with no relief. Also QTcH 482 - CBC and BMP reviewed - potassium 3.1 replaced -> 3.9 (08/26) - IV fluids for hydration - KUB reviewed reveals Nonobstructive bowel gas pattern. Stool present - Dulcolax Supp and colace PO BID - Consult GI, appreciate input. EGD (08/26) impression: Severe esophagitis grade D at least involving the lower half of the esophagus, questionable Charissa , biopsy was done Hiatal hernia still exist with fluid pooling in it, retroflexion showing some surgical changes but not typical view after Charlotte fundoplication, irritation of the stomach could be from the nausea vomiting biopsy was done Redness and erythema in the duodenal biopsy was - GI recommending Protonix 40 mg twice daily, Surgical consultation as an outpatient may be considered and Antiemetic as needed - continue Carafate - Diflucan 200 mg daily Recent Esophageal ulcer - Patient had an EGD on 06/07/17 --> Single ulcer ranging between 3-5 mm in size was found in the distal esophagus and 100cc of coffee grounds in the stomach - EGD (08/26) impression: Severe esophagitis grade D at least involving the lower half of the esophagus, questionable Charissa, biopsy was done Hiatal hernia still exist with fluid pooling in it, retroflexion showing some surgical changes but not typical view after Charlotte fundoplication, irritation of the stomach could be from the nausea vomiting biopsy was done Redness and erythema in the duodenal biopsy was Obstructive sleep apnea - May use home CPAP GERD (gastroesophageal reflux disease) - continue PPI Hypothyroidism - Continue home Synthroid dose Fibromyalgia - Failed multiple outpatient therapies per her report. Constipation Patient reports no BM for the past, "few days." denies flatus KUB (08/26) demonstrated a nonobstructive bowel gas pattern no result from stool softeners and Dulcolax suppository yesterday continue stool softeners GI added Senokot and glycerin supp Fleets enema if no result from supp -> postitive BM Patient now asking to be DC'd Patient no longer having N/V -> tolerating PO intake will DC with protonix 40 mg BID carafate trial of reglan and Diflucan Pt Condition on Discharge: Stable Discharge Disposition: Discharge Home Discharge Instructions DIET: Follow Instructions for: Soft Diet, Low Residue Diet Activities you can perform: Regular-No Restrictions Follow up Referrals: Clinic with [facility]ology - 2 Weeks with Rajinder Verma MD PCP Follow-up - [address] Lobo New Medications: Metoclopramide (Reglan) 5 Mg Tab 5 MG PO TIDAC for gastroparesis for 21 Days, TAB 0 Refills Pantoprazole (Protonix) 40 Mg Tab 40 MG PO BID for Reflux, #60 TAB 0 Refills Fluconazole (Diflucan) 200 Mg Tab 200 MG PO DAILY@1600 for anti fungal, #12 TAB 0 Refills Continued Medications: Tdxvexflia-Lbjanrowlvbca-Hmzixdli (Fioricet) 50-300-40 Mg Cap 1 CAP PO Q4H PRN for HEADACHE, #20 CAP 0 Refills Cholecalciferol (Vitamin D) 400 Unit/Ml Drops 66032 UNITS PO WEEKLY, #1 BOTTLE Cyanocobalamin (Vitamin B-12) 1,000 Mcg Subl 1000 MCG SL DAILY for Nutritional Supplement, TAB.SL 0 Refills Levothyroxine (Synthroid) 100 Mcg Tab 100 MCG PO DAILY for Thyroid, #30 TAB 0 Refills Lubiprostone (Amitiza) 8 Mcg Cap 8 MCG PO BID, CAP Promethazine (Phenergan) 25 Mg Tablet 25 MG PO Q6H PRN for NAUSEA OR VOMITING, #20 TAB 0 Refills Sucralfate Liq (Sucralfate Liq) 1 Gram/10 Ml Laina 1 GM PO ACHS for ulcer for 30 Days, #1 BOTTLE 1 Refill (This prescription has been renewed) Discontinued Medications: Potassium Chloride ER (Potassium Chloride ER) 20 Meq Tab 20 MEQ PO BID for Electrolyte Replacement for 3 Days, #6 TAB 0 Refills Additional Information Patient examined. Assessment and plan formulated with Shwetha Fitzpatrick PA-C. I agree with the above. Shwetha Fitzpatrick Aug 27, 2017 16:31 Duane Johnson DO Aug 30, 2017 10:28
== END 2017-08-27 16:51 | disposition home or self-care (01) ==
LOC: NEPC 11:27 → NEDA 15:42 → NEPGCP 19:16
PROVIDERS: ADMIT Hospitalist; ATTEND Hospitalist
DX: K22.10 Ulcer of esophagus without bleeding (principal); K29.70 Gastritis, unspecified, without bleeding; K31.84 Gastroparesis; K21.9 Gastro-esophageal reflux disease without esophagitis; K44.9 Diaphragmatic hernia without obstruction or gangrene; R94.31 Abnormal electrocardiogram [ECG] [EKG]; I10 Essential (primary) hypertension; M79.7 Fibromyalgia; G47.33 Obstructive sleep apnea (adult) (pediatric); E78.5 Hyperlipidemia, unspecified; E03.9 Hypothyroidism, unspecified; K59.00 Constipation, unspecified; M81.0 Age-related osteoporosis without current pathological fracture; R53.82 Chronic fatigue, unspecified; Z87.891 Personal history of nicotine dependence; Z82.49 Family history of ischemic heart disease and other diseases of the circulatory system
CPT/HCPCS: 00731; 43239; 74018; 74176; 80048; 80053; 81001; 82550; 83690; 83735; 84100; 84484; 85025; 85610; 85730; 86850; 86900; 86901; 88305; 88312; 93005; 96361; 96365; 96366; 96375; 96376; 97161; 99285; C9113; G0378; G8987; G8988; J0780; J2765; J3480; J7030; J8501